=== PATIENT | male | born 1950 | race Caucasian/White ===

== ENCOUNTER 2018-08-02 09:47 | Day surgery (SDC) | payer MEDICARE, OTHER ==
[~2018-08-02] VITALS: Ht 182.9 cm; Wt 114.5 kg
[~2018-08-02 09:47] MED LIST: ADVI1CAP2 PO; LIDOCAINE 2% INJ 100 MG/5 ML SDV (FOR ANES.) As Ordered ONE; PROPOFOL 200 MG/20 ML VIAL As Ordered ONE; SIMV40TA2 PO; VALS160T PO
[2018-08-02] MEDS ORDERED: NS 1,000 ML IV ONE (10:00)
--- NOTE | 2018-08-02 11:08 | ROOR ---
Patient Name: Mc Nguyen Procedure Date: 08/02/2018 10:46 AM Date of : 1950 Age: 68 Room: [facility] Gender: Male Note Status: Finalized Procedure: Total Colonoscopy to Cecum + Cold Snare Polypectomy + Hemoclips Indications: Colon cancer screening in patient at increased risk: Colorectal cancer in father, Last colonoscopy: 2011 Providers: Saroj Ordonez MD Referring MD: PERI KIM MD Requesting Provider: Medicines: Monitored Anesthesia Care Complications: No immediate complications. Procedure: Pre-Anesthesia Assessment: - The heart rate, respiratory rate, oxygen saturations, blood pressure, adequacy of pulmonary ventilation, and response to care were monitored throughout the procedure. The Colonoscope was introduced through the anus and advanced to the cecum, identified by appendiceal orifice and ileocecal valve. The colonoscopy was performed without difficulty. The patient tolerated the procedure well. The quality of the bowel preparation was excellent. Findings: The perianal and digital rectal examinations were normal. Non-bleeding internal hemorrhoids were found during retroflexion. The hemorrhoids were small and Grade I (internal hemorrhoids that do not prolapse). Multiple small and large-mouthed diverticula were found in the recto-sigmoid colon, sigmoid colon and descending colon. Three sessile polyps were found in the ascending colon. The polyps were small in size. These polyps were removed with a cold snare. Resection and retrieval were complete. To prevent bleeding after the polypectomy, two hemostatic clips were successfully placed (MR conditional). There was no bleeding at the end of the procedure. The exam was otherwise without abnormality on direct and retroflexion views. Impression: - Non-bleeding internal hemorrhoids. - Diverticulosis in the recto-sigmoid colon, in the sigmoid colon and in the descending colon. - Three small polyps in the ascending colon, removed with a cold snare. Resected and retrieved. Clips (MR conditional) were placed. - The examination was otherwise normal on direct and retroflexion views. - The exam was otherwise normal to the cecum. Recommendation: - Patient has a contact number available for emergencies. The signs and symptoms of potential delayed complications were discussed with the patient. Return to normal activities tomorrow. Written discharge instructions were provided to the patient. - High fiber diet. - Discharge patient to home. - Continue present medications. - Await pathology results. - Telephone GI clinic for pathology results in 1 week. - Repeat colonoscopy in 5 years for surveillance based on pathology results. - Return to referring physician. - The findings and recommendations were discussed with the patient's family. Saroj Ordonez MD Saroj Ordonez MD 08/02/2018 11:07:41 AM This report has been signed electronically. Number of Addenda: 0 Note Initiated On: 08/02/2018 10:46 AM Estimated Blood Loss: Estimated blood loss: none.
[2018-08-02 11:36] VITALS: BP 176/99
== END 2018-08-02 11:38 | disposition home or self-care (01) ==
LOC: M OPP 09:47
PROVIDERS: ATTEND Internal Medicine Gastroenterology
DX: K64.0 First degree hemorrhoids (principal); K57.30 Diverticulosis of large intestine without perforation or abscess without bleeding; D12.2 Benign neoplasm of ascending colon; Z12.11 Encounter for screening for malignant neoplasm of colon; Z80.0 Family history of malignant neoplasm of digestive organs

== ENCOUNTER → 2021-03-11 | Outpatient (CLI) | payer MEDICARE, OTHER ==
[~2021-03-11] MED LIST changes: -LIDOCAINE 2% INJ 100 MG/5 ML SDV (FOR ANES.) As Ordered ONE; -PROPOFOL 200 MG/20 ML VIAL As Ordered ONE; -SIMV40TA2 PO; +SIMV40TA20 PO; -VALS160T PO; +VALS160T2 PO
--- NOTE | 2021-03-11 09:59 | REP ---
INDICATION: LOW BACK PAIN. COMPARISON: None available. TECHNIQUE: Five images lumbar spine FINDINGS: The lateral view demonstrates loss of normal lordosis. There is spondylosis with narrowing and both anterior and posterior osteophytes at L2-3 and also spondylosis at L5-S1 with disc space narrowing there is lesser disc space narrowing at L4-5 with anterior and smaller posterior osteophytes. The L3-4 disc level is preserved. The L1-2 disc level shows only minimal narrowing. There is facet arthropathy at L4-5 and L5-S1. I see no spondylolysis or spondylolisthesis. Heavy vascular calcifications in the aorta and iliac vessels noted. Compression deformities or destructive lesions. The pedicles, spinous and transverse processes are unremarkable. Sacral ala, SI joints, iliac wings, lower thoracic vertebral bodies and ribs grossly intact. IMPRESSION: Degenerative disc disease with spondylosis and disc space narrowing greatest at L2-3 and L5-S1. Loss of lordosis may reflect spasm or the effects of degenerative change. Facet arthritis at L4-5 and L5-S1. No spondylolysis, spondylolisthesis or compression deformity. <Electronically signed by Sid Youssef > 03/11/21 [id number]
== END ==
LOC: M WUC 08:46
PROVIDERS: ATTEND Physician Assistant
DX: M47.816 Spondylosis without myelopathy or radiculopathy, lumbar region (principal); M54.5 Low back pain

== ENCOUNTER → 2021-04-18 | Outpatient (CLI) | payer MEDICARE, OTHER ==
--- NOTE | 2021-04-19 09:52 | REPVR ---
PROCEDURE INFORMATION: Exam: MR Lumbar Spine Without Contrast Exam date and time: 04/18/2021 9:04 AM Age: 70 years old Clinical indication: Low back pain; Additional info: Spinal stenosis w/ claudication, failed treatment TECHNIQUE: Imaging protocol: Multiplanar magnetic resonance images of the lumbar spine without intravenous contrast. COMPARISON: CR SPINE LS COMPLETE 03/11/2021 9:13 AM FINDINGS: Vertebrae: There is straightening of the normal lumbar lordosis. There is 2 mm of grade 1 retrolisthesis of L2 with respect to L3. There is for mm of grade 1 retrolisthesis of L4 with respect to L5 and L5 with respect to S1. There is severe intervertebral disc space loss at L2/3, with endplate signal changes. There is osseous fusion of the L5 and S1 bodies. Spinal cord: The conus medullaris terminates at T12/L1. The patient has a congenitally narrowed spinal canal. L1-L2: There is diffuse disc bulging. There is mild facet and ligamentous hypertrophy. The spinal canal and neural foramina are patent. L2-L3: There is a diffuse disc osteophyte complex. There is mild facet and ligamentous hypertrophy. There is mild canal stenosis. There is mild left neural foraminal narrowing. L3-L4: There is diffuse disc bulging with a superimposed left paracentral/subarticular superior disc extrusion measuring up to 8 mm in AP dimension. This effaces the left lateral recess, with potential compromise of the left L4 nerve root. There is severe canal stenosis. There is moderate facet hypertrophy. There is mild left neural foraminal narrowing. L4-L5: There is disc bulging/uncovering related to listhesis. There is moderate facet hypertrophy. There is mild canal stenosis. There is mild bilateral neural foraminal narrowing. L5-S1: There is a diffuse disc osteophyte complex. There is mild facet hypertrophy. There is severe right and moderate to severe left neural foraminal narrowing. Soft tissues: Unremarkable. IMPRESSION: Degenerative disc disease and spondylosis. At L3/4, large left paracentral/superior disc protrusion/extrusion effaces the left lateral recess, with potential compromise of the left L4 nerve root. There is severe canal stenosis. At L5/S1, there is severe right and moderate to severe left neural foraminal narrowing. Electronically signed by: Fernanda Brennan On 04/19/2021 09:52:09 AM
== END ==
LOC: M PLAIMG 08:22
PROVIDERS: ATTEND Orthopaedic Surgery
DX: M48.062 Spinal stenosis, lumbar region with neurogenic claudication (principal)

== ENCOUNTER → 2021-05-21 | Outpatient (CLI) | payer MEDICARE, OTHER ==
--- NOTE | 2021-05-21 10:15 | REP ---
INDICATION: PREOP TESTING COMPARISON: None. TECHNIQUE: PA and lateral. FINDINGS: The mediastinum and cardiac silhouette are normal. The lung christine are clear and without acute consolidation, effusion, or pneumothorax. The skeletal structures are intact and normal. IMPRESSION: No acute cardiopulmonary process. <Electronically signed by Raul Magaña > 05/21/21 1012
[2021-05-21 12:05] LABS: BASO # 0.1 10^3/uL (0.0-0.2); BASO % 0.8 % (0.0-1.0); EOS # 0.1 10^3/uL (0.0-0.5); HEMATOCRIT 42.7 % (42.0-52.0); HEMOGLOBIN 14.4 g/dl (13.5-17.5); LYMPH # 1.8 10^3/uL (1.5-5.0); LYMPH % 27.6 % (24.0-44.0); MEAN CORPUSCULAR HGB CONC 33.7 g/dl (32.0-36.5); MONO # 0.8 10^3/uL (0.0-0.8); MONO % 11.6 % (2.0-8.0); NEUTROPHILS # 3.8 10^3/uL (1.5-8.5); NEUTROPHILS % 57.7 % (36.0-66.0); PLATELET COUNT, AUTOMATED 169 10^3/uL (150-450); RED BLOOD COUNT 4.64 10^6/uL (4.30-6.10); WHITE BLOOD COUNT 6.6 10^3/uL (4.0-10.0)
[2021-05-21 12:21] LABS: INR 0.91; PROTHROMBIN TIME 12.6 SECONDS (12.7-14.5)
[2021-05-21 12:22] LABS: PARTIAL THROMBOPLASTIN TIME 29.3 SECONDS (25.9-37.0)
[2021-05-21 13:29] LABS: ALBUMIN 3.8 GM/DL (3.2-5.2); ALT/SGPT 28 U/L (12-78); BILIRUBIN,TOTAL 0.6 MG/DL (0.2-1.0); BLOOD UREA NITROGEN 18 MG/DL (7-18); CALCIUM LEVEL 9.8 MG/DL (8.8-10.2); CARBON DIOXIDE LEVEL 29 MEQ/L (21-32); CHLORIDE LEVEL 103 MEQ/L (98-107); CREATININE FOR GFR 1.23 MG/DL (0.70-1.30); GLOMERULAR FILTRATION RATE > 60.0 (>49); GLUCOSE, FASTING 115 MG/DL (70-100); PHOSPHORUS LEVEL 2.6 MG/DL (2.5-4.9); POTASSIUM SERUM 4.2 MEQ/L (3.5-5.1); SODIUM LEVEL 136 MEQ/L (136-145); TOTAL PROTEIN 6.9 GM/DL (6.4-8.2)
[2021-05-21 13:51] LABS: HEMOGLOBIN A1c 5.7 %
== END ==
LOC: M WUC 09:21
PROVIDERS: ATTEND Orthopaedic Surgery
DX: Z01.818 Encounter for other preprocedural examination (principal); M51.06 Intervertebral disc disorders with myelopathy, lumbar region; Z79.899 Other long term (current) drug therapy

== ENCOUNTER → 2021-05-31 | Outpatient (CLI) | payer MEDICARE, OTHER ==
[~2021-05-31] MED LIST changes: +TRAM50TA2 PO; +tylenol pm PO
== END ==
LOC: M LABSMTC 09:07
PROVIDERS: ATTEND Anesthesiology
DX: Z01.812 Encounter for preprocedural laboratory examination (principal); Z20.822 Contact with and (suspected) exposure to COVID-19

== ENCOUNTER 2021-06-05 06:29 | Day surgery (SDC) | payer MEDICARE, OTHER ==
[~2021-06-05] VITALS: Ht 182.9 cm; Wt 105.2 kg
[~2021-06-05 06:29] MED LIST changes: +LR 1,000 ML IV ONE; +ceFAZolin SOD 2 GM in IV 1 EA IV ONE
--- OUTSIDE RECORDS SUMMARY | 2021-06-05 06:32 | CCD | Continuity of Care Document ---
Author Author Mc POLANCO M.D. Organization Unknown Address [address] [facility] [address] [place] [address] Phone [phone] Problems Active Problems Provider Date Essential hypertension Onset: 08/04/2001 Shoulder joint pain Onset: 08/04/2001 Hyperlipidemia Kevin Polanco M.D. Onset: 3 Social History Type Date Description Comments Sex Unknown ETOH Use Occasionally consumes beer ETOH Use current.liquor.occasionally Tobacco Use Start: Unknown End: Unknown Patient is a former smoker Quit 2004 Seat Belt/Car Seat always Allergies and adverse reactions Description No Known Drug Allergies Medications Active Medications SIG Qnty Indications Ordering Provide r Date Diovan HCT 160-12.5mg Tablets 1 by mouth every day 90tabs Kevin Polanco M.D. 10/13/19 18 Tramadol HCL 50mg Tablets 1 by mouth three times a day as needed pain [id number] 90tabs Aj Polanco M.D. 08/12/2017 Simvastatin 40mg Tablets 1 by mouth every day 90tabs Kevin Polanco M.D. 06/13/20 13 Immunizations CPT Code Status Date Vaccine Lot # [id number] Refused 06/18/2018 Influenza Virus Vaccine, Quadrivalent, Slit Virus, Im Use 3Y & Up Vital Signs Date Vital Result Comment 05/21/2021 10:18am BP Systolic 114 mmHg BP Diastolic 74 mmHg Body Temperature 98.5 F Heart Rate 70 /min Respiratory Rate 18 /min Height 72 inches 6'0" Weight 233.00 lb [place] Body Weight 178 lb BMI (Body Mass Index) 31.6 kg/m2 O2 % BldC Oximetry 94 % 04/08/2021 8:22am BP Systolic 122 mmHg BP Diastolic 78 mmHg Heart Rate 72 /min Respiratory Rate 14 /min Weight 227.00 lb Results Test Acquired Date Facility Test Result H/L Range Note Coronavirus 2019 Nasopharygeal 05/31/2021 [facility] ([facility]) [phone] Coronavirus 2019 Nasopharygeal ASSAY INFORMATIO <SEE N OTE> 1 Hemoglobin A1c 05/21/2021 N2N/CCD Imports Hemoglobin A1c 5.7 % 2 Estimated Average Glucose 117 MG/DL High 60-110 Renal Profile 05/21/2021 N2N/CCD Imports Phosphorus Level 2.6 MG/DL 2.5-4.9 Comprehensive Metabolic Profil 05/21/2021 N2N/CCD I mports Glucose, Fasting 115 MG/DL High 70-100 Blood Urea Nitrogen 18 MG/DL 7-18 Creatinine For GFR 1.23 MG/DL 0.70-1.30 Glomerular Filtration Rate > 60.0 >49 3 Sodium Level 136 Meq/L 136-145 Potassium Serum 4.2 Meq/L 3.5-5.1 Chloride Level 103 Meq/L 98-107 Carbon Dioxide Level 29 Meq/L 21-32 Anion Gap 4 Meq/L Low 8-16 Calcium Level 9.8 MG/DL 8.8-10.2 Ast/Sgot 19 U/L 7-37 Alt/SGPT 28 U/L 12-78 Alkaline Phosphatase 74 U/L 45-117 Bilirubin,Total 0.6 MG/DL 0.2-1.0 Total Protein 6.9 GM/DL 6.4-8.2 Albumin 3.8 GM/DL 3.2-5.2 Albumin/Globulin Ratio 1.2 Type And Screen 05/21/2021 N2N/CCD Imports Blood Type O Positive AB Screen (Indirect Alysha)Vis Negative Partial Thromboplastin Time 05/21/2021 N2N/CCD Impo rts Partial Thromboplastin Time 29.3 Seconds 25.9-37.0 Prothrombin Time/Inr 05/21/2021 N2N/CCD Imports Prothrombin Time 12.6 Seconds 12.7-14.5 Inr 0.91 4 CBC With Differential 05/21/2021 N2N/CCD Imports White Blood Count 6.6 10 4.0-10.0 Red Blood Count 4.64 10 4.30-6.10 Hemoglobin 14.4 g/dl 13.5-17.5 Hematocrit 42.7 % 42.0-52.0 Mean Corpuscular Volume 92.0 fl 80.0-96.0 Mean Corpuscular Hemoglobin 31.0 pg 27.0-33.0 Mean Corpuscular HGB Conc 33.7 g/dl 32.0-36.5 Red Cell Distribution Width 12.1 % 11.5-14.5 Platelet Count, Automated 169 10 150-450 Neutrophils % 57.7 % 36.0-66.0 Lymph % 27.6 % 24.0-44.0 [place] % 11.6 % High 2.0-8.0 Eos % 2.0 % 0.0-3.0 Baso % 0.8 % 0.0-1.0 Immature Granulocyte % 0.3 % 0-3.0 Nucleated Red Blood Cell % 0.0 % 0-0 Neutrophils # 3.8 10 1.5-8.5 Lymph # 1.8 10 1.5-5.0 [place] # 0.8 10 0.0-0.8 Eos # 0.1 10 0.0-0.5 Baso # 0.1 10 0.0-0.2 Metabolic Panel (14), Comprehensive 04/08/2021 [facility] [place] Glucose 115 mg/dL High 65-99 BUN 21 mg/dL 8-27 Creatinine 1.15 mg/dL 0.76-1.27 eGFR If NonAfricn Am 65 mL/min/1.73 >59 eGFR If Africn Am 75 mL/min/1.73 >59 5 BUN/Creatinine Ratio 18 10-24 Sodium 135 mmol/L 134-144 Potassium 4.0 mmol/L 3.5-5.2 Chloride 100 mmol/L 96-106 Carbon Dioxide, Total 21 mmol/L 20-29 Calcium 9.4 mg/dL 8.6-10.2 Protein, Total 6.8 g/dL 6.0-8.5 Albumin 4.5 g/dL 3.8-4.8 Globulin, Total 2.3 g/dL 1.5-4.5 A/G Ratio 2.0 1.2-2.2 Bilirubin, Total 0.6 mg/dL 0.0-1.2 Alkaline Phosphatase 76 IU/L 48-121 Ast (Sgot) 24 IU/L 0-40 Alt (SGPT) 23 IU/L 0-44 Lipid Panel 04/08/2021 [facility] [place] Cholesterol, Total 171 mg/dL 100-199 Triglycerides 115 mg/dL 0-149 HDL Cholesterol 53 mg/dL >39 VLDL Cholesterol Miguel 21 mg/dL 5-40 LDL Chol Calc ([facility]) 97 mg/dL 0-99 Comment: TNP Laboratory test finding 04/08/2021 [facility] Hemoglobin A1c 5.7 % 4.50-6.20 1 ASSAY INFORMATION: Real Time RT-PCR NOTE: The COVID-19 assay has been cleared by the U.S. Food and Drug Administration under the Emergency Use Authorization (EUA). [facility] and [employer] [facility] are designated as high complexity laboratories by the Clinical Laboratory Improvement Amendments of 1988(CLIA) and are qualified to perform this test. Not Detected 2 REFERENCE RANGES: <=5.6% NORMAL 5.7-6.4% SUGGESTS IMPAIRED GLUCOSE META BOLISM/PREDIABETIC >= 6.5% ABNORMAL 3 Units are mL/min/1.73 m2 Chronic Kidney Disease Staging per NKF: Stage I & II GFR >=60 Normal to Mildly Decreased Stage III GFR 30-59 Moderately Decreased Stage IV GFR 15-29 Severely Decreased Stage V GFR <15 Very Little GFR Left ESRD GFR <15 on BUFFING MACHINE TENDER 4 THERAPUTIC HUMAN INR VALUES INDICATIONS NORMAL RANGES PROPHYLAXIS/TREATMENT OF: VENOUS THROMBOSIS 2.0-3.0 PULMONARY EMBOLISM 2.0-3.0 PREVENTION OF SYSTEMIC EMBOLISM FROM: TISSUE HEART VALVES 2.0-3.0 ACUTE MYOCARDIAL INFARCTION 2.0-3.0 VALVULAR HEART DISEASE 2.0-3.0 ATRIAL FIBRILLATION 2.0-3.0 MECHANICAL VALVES(HIGH RISK) 2.5-3.5 RECURRENT MYOCARDIAL INFARCTION 2.5-3.5 5 [facility] currently reports eGFR in compliance with the current recommendations of the National Kidney Foundation. [facility] will update reporting as new guidelines are published from the NKF-ASN Task force. Procedures Date Code Description Status 05/21/2021 02142 Office/Outpatient Established Mo d MDM 30-39 Min Completed 04/08/2021 23117 Office/Outpatient Established Mo d MDM 30-39 Min Completed Medical Devices Description No Information Available Encounters Type Date Location Provider Dx Diagnosis Office Visit 05/21/2021 10:20a [facility] Kevin Polanco M. D. Z01.810 Encounter for preprocedural cardiovascular examination Office Visit 04/08/2021 8:30a [facility] Kevin Polanco M. D. I10 Essential (primary) hypertension R73.01 Impaired fasting glucose E78.5 Hyperlipidemia, unspecified M54.32 Sciatica, left side Assessments Date Code Description Provider 05/21/2021 Z01.810 Encounter for preprocedural card iovascular examination Kevin Polanco M.D. 04/08/2021 I10 Essential (primary) hypertension Kevin Polanco M.D. 04/08/2021 R73.01 Impaired fasting glucose Kevin Garcia M.D. 04/08/2021 E78.5 Hyperlipidemia, unspecified [facility] helKevin ghotra M.D. 04/08/2021 M54.32 Sciatica, left side Giovanny Polanco M.D. Plan of Treatment Future Appointment(s):* 10/09/2021 8:30 am - Kevin Polanco M.D. at [facility] Functional Status Functional Condition Comment Date Status ADL's.independent.all ADL's Acti ve Mental Status Description No Information Available Referrals Refer to Reason for Referral Status Appt Date [facility] Orthopedics [facility] orthopedics left sciatica, eval and rx Sent 04/11/[address]21 [address] [facility] [address] [facility] [address] [phone] [facility] Nurse Practitioners pearly lesion on lower lip- eval [place] rx Sent [address] [facility] [address] [place] [address] [phone]
--- OUTSIDE RECORDS SUMMARY | 2021-06-05 06:32 | CCD | Continuity of Care Document ---
Author Organization Unknown Address Unknown Phone Unavailable Problems Active Problems Provider Date Essential hypertension [...] three times a day as needed pain [id number] 90tabs Aj Polanco M.D. 08/12/2017 Simvastatin 40mg Tablets 1 by mouth every day 90tabs Kevin Polanco M.D. 06/13/20 13 Immunizations CPT Code Status Date Vaccine Lot # [id number] Refused 06/18/2018 Influenza Virus Vaccine, Quadrivalent, Slit Virus, Im Use 3Y & Up Vital Signs Date Vital Result Comment 05/21/2021 10:18am BP Systolic 114 mmHg BP Diastolic 74 mmHg Body Temperature 98.5 F Heart Rate 70 /min Respiratory Rate 18 /min Height 72 inches 6'0" Weight 233.00 lb [place] Body Weight 178 lb BMI (Body Mass Index) 31.6 kg/m2 O2 % BldC Oximetry 94 % 04/08/2021 8:22am BP Systolic 122 mmHg BP Diastolic 78 mmHg Heart Rate 72 /min Respiratory Rate 14 /min Weight 227.00 lb Results Test Acquired Date Facility Test Result H/L Range Note Hemoglobin A1c 05/21/2021 N2N/CCD Imports Hemoglobin A1c 5.7 % 1 Estimated Average Glucose 117 MG/DL High 60-110 Renal Profile 05/21/2021 N2N/CCD Imports Phosphorus Level 2.6 MG/DL 2.5-4.9 Comprehensive Metabolic Profil 05/21/2021 N2N/CCD I mports Glucose, Fasting 115 MG/DL High 70-100 Blood Urea Nitrogen 18 MG/DL 7-18 Creatinine For GFR 1.23 MG/DL 0.70-1.30 Glomerular Filtration Rate > 60.0 >49 2 Sodium Level 136 Meq/L 136-145 Potassium Serum [...] Prothrombin Time 12.6 Seconds 12.7-14.5 Inr 0.91 3 CBC With Differential 05/21/2021 N2N/CCD Imports White [...] % 36.0-66.0 Lymph % 27.6 % 24.0-44.0 [place] % 11.6 % High 2.0-8.0 Eos % 2.0 % 0.0-3.0 Baso % 0.8 % 0.0-1.0 Immature Granulocyte % 0.3 % 0-3.0 Nucleated Red Blood Cell % 0.0 % 0-0 Neutrophils # 3.8 10 1.5-8.5 Lymph # 1.8 10 1.5-5.0 [place] # 0.8 10 0.0-0.8 Eos # 0.1 10 0.0-0.5 Baso # 0.1 10 0.0-0.2 Metabolic Panel (14), Comprehensive 04/08/2021 [facility] [place] Glucose 115 mg/dL High 65-99 BUN 21 mg/dL 8-27 Creatinine 1.15 mg/dL 0.76-1.27 eGFR If NonAfricn Am 65 mL/min/1.73 >59 eGFR If Africn Am 75 mL/min/1.73 >59 4 BUN/Creatinine Ratio 18 10-24 Sodium 135 mmol/L [...] Miguel 21 mg/dL 5-40 LDL Chol Calc ([facility]) 97 mg/dL 0-99 Comment: TNP Laboratory test finding 04/08/2021 [facility] Hemoglobin A1c 5.7 % 4.50-6.20 1 REFERENCE RANGES: <=5.6% NORMAL 5.7-6.4% SUGGESTS IMPAIRED GLUCOSE META BOLISM/PREDIABETIC >= 6.5% ABNORMAL 2 Units are mL/min/1.73 m2 Chronic Kidney Disease Staging per NKF: Stage I & II GFR >=60 Normal to Mildly Decreased Stage III GFR 30-59 Moderately Decreased Stage IV GFR 15-29 Severely Decreased Stage V GFR <15 Very Little GFR Left ESRD GFR <15 on MARINE F[employer]EL DOCK ATTENDANT 3 THERAPUTIC HUMAN INR VALUES INDICATIONS NORMAL RANGES PROPHYLAXIS/TREATMENT OF: VENOUS THROMBOSIS 2.0-3.0 PULMONARY EMBOLISM 2.0-3.0 PREVENTION OF SYSTEMIC EMBOLISM FROM: TISSUE HEART VALVES 2.0-3.0 ACUTE MYOCARDIAL INFARCTION 2.0-3.0 VALVULAR HEART DISEASE 2.0-3.0 ATRIAL FIBRILLATION 2.0-3.0 MECHANICAL VALVES(HIGH RISK) 2.5-3.5 RECURRENT MYOCARDIAL INFARCTION 2.5-3.5 4 [facility] currently reports eGFR in compliance with the current recommendations of the National Kidney Foundation. [facility] will update reporting as new guidelines are published from the NKF-ASN Task force. Procedures Date Code Description Status 05/21/2021 97337 Office/Outpatient Established Mo d MDM 30-39 Min Completed 04/08/2021 47786 Office/Outpatient Established Mo d MDM 30-39 Min Completed Medical Devices Description No Information Available Encounters Type Date Location Provider Dx Diagnosis Office Visit 05/21/2021 10:20a [facility] Kevin Polanco M. D. Z01.810 Encounter for preprocedural cardiovascular examination Office Visit 04/08/2021 8:30a [facility] Kevin Polanco M. D. I10 Essential (primary) hypertension R73.01 Impaired fasting glucose E78.5 Hyperlipidemia, unspecified M54.32 Sciatica, left side Assessments Date Code Description Provider 05/21/2021 Z01.810 Encounter for preprocedural card iovascular examination Kevin Polanco M.D. 04/08/2021 I10 Essential (primary) hypertension Kevin Polanco M.D. 04/08/2021 R73.01 Impaired fasting glucose Kevin Garcia M.D. 04/08/2021 E78.5 Hyperlipidemia, unspecified [facility] Kevin siddiqui M.D. 04/08/2021 M54.32 Sciatica, left side Giovanny Polanco M.D. Plan of Treatment Future Appointment(s):* 10/09/2021 8:30 am - Kevin Polanco M.D. at [facility] Functional Status Functional Condition Comment Date Status ADL's.independent.all ADL's Acti ve Mental Status Description No Information Available Referrals Refer to Dr Reason for Referral Status Appt Date [facility] Orthopedics [facility] orthopedics left sciatica, eval and rx Sent 04/11/2021 [address] [place] [address] [phone] [facility] Nurse Practitioners pearly lesion on lower lip- [place] [address] [facility] [address] [place] [address] [phone]
--- OUTSIDE RECORDS SUMMARY | 2021-06-05 06:32 | CCD | Continuity of Care Document ---
[...] three times a day as needed pain [id number] 90tabs Aj Polanco M.D. 08/12/2017 Simvastatin 40mg Tablets 1 by mouth every day 90tabs Kevin Polanco M.D. 06/13/20 13 Immunizations CPT Code Status Date Vaccine Lot # [id number] Refused 06/18/2018 Influenza Virus Vaccine, Quadrivalent, Slit Virus, Im Use 3Y & Up Vital Signs Date Vital Result Comment 05/21/2021 10:18am BP Systolic 114 mmHg BP Diastolic 74 mmHg Body Temperature 98.5 F Heart Rate 70 /min Respiratory Rate 18 /min Height 72 inches 6'0" Weight 233.00 lb [place] Body Weight 178 lb BMI (Body Mass [...] % 36.0-66.0 Lymph % 27.6 % 24.0-44.0 [place] % 11.6 % High 2.0-8.0 Eos % 2.0 % 0.0-3.0 Baso % 0.8 % 0.0-1.0 Immature Granulocyte % 0.3 % 0-3.0 Nucleated Red Blood Cell % 0.0 % 0-0 Neutrophils # 3.8 10 1.5-8.5 Lymph # 1.8 10 1.5-5.0 [place] # 0.8 10 0.0-0.8 Eos # 0.1 [...] 0-99 Comment: TNP Laboratory test finding 04/08/2021 [facility] Hemoglobin A1c 5.7 % [...] Little GFR Left ESRD GFR <15 on CIGAR[employer] P[employer]AGE EXAMINER 3 THERAPUTIC HUMAN INR VALUES INDICATIONS NORMAL [...] force. Procedures Date Code Description Status 05/21/2021 63261 Office/Outpatient Established Mo d MDM 30-39 Min Completed 04/08/2021 99974 Office/Outpatient Established Mo d MDM 30-39 Min Completed Medical Devices Description No Information Available Encounters Type Date Location Provider Dx Diagnosis Office Visit 05/21/2021 10:20a [place] [facility] Kevin Poalnco M. D. Z01.810 Encounter for preprocedural cardiovascular examination Office Visit 04/08/2021 8:30a [place] [facility] Kevin Polanco M. D. I10 Essential (primary) hypertension R73.01 Impaired fasting glucose E78.5 Hyperlipidemia, unspecified M54.32 Sciatica, left side Assessments Date Code Description Provider 05/21/2021 Z01.810 Encounter for preprocedural card iovascular examination Kevin Polanco M.D. 04/08/2021 I10 Essential (primary) hypertension Kevin Polanco M.D. 04/08/2021 R73.01 Impaired fasting glucose Kevin Garcia M.D. 04/08/2021 E78.5 Hyperlipidemia, unspecified [facility] Kevin siddiqui M.D. 04/08/2021 M54.32 Sciatica, left side Giovanny Polanco M.D. Plan of Treatment Future Appointment(s):* 10/09/2021 8:30 am - Kevin Polanco M.D. at [facility] Functional Status Functional Condition Comment Date Status ADL's.independent.all ADL's Acti ve Mental Status Description No Information Available Referrals Refer to Dr Reason for Referral Status Appt Date [facility] Orthopedics [facility] orthopedics left sciatica, eval and rx Sent 04/11/2021 [address] [place] [address] [phone] [facility] Nurse Practitioners pearly lesion on lower lip- eval an d rx Sent [address] [facility] [address] [place] [address] [phone]
--- OUTSIDE RECORDS SUMMARY | 2021-06-05 06:33 | CCD | Continuity of Care Document ---
[...] three times a day as needed pain [id number] 90tabs Aj Polanco M.D. 08/12/2017 Simvastatin 40mg Tablets 1 by mouth every day 90tabs Kevin Polanco M.D. 06/13/20 13 Immunizations CPT Code Status Date Vaccine Lot # [id number] Refused 06/18/2018 Influenza Virus Vaccine, Quadrivalent, Slit Virus, Im Use 3Y & Up Vital Signs Date Vital Result Comment 05/21/2021 10:18am BP Systolic 114 mmHg BP Diastolic 74 mmHg Body Temperature 98.5 F Heart Rate 70 /min Respiratory Rate 18 /min Height 72 inches 6'0" Weight 233.00 lb [place] Body Weight 178 lb BMI (Body Mass [...] % 36.0-66.0 Lymph % 27.6 % 24.0-44.0 [place] % 11.6 % High 2.0-8.0 Eos % 2.0 % 0.0-3.0 Baso % 0.8 % 0.0-1.0 Immature Granulocyte % 0.3 % 0-3.0 Nucleated Red Blood Cell % 0.0 % 0-0 Neutrophils # 3.8 10 1.5-8.5 Lymph # 1.8 10 1.5-5.0 [place] # 0.8 10 0.0-0.8 Eos # 0.1 [...] 0-99 Comment: TNP Laboratory test finding 04/08/2021 [facility] Hemoglobin A1c 5.7 % 4.50-6.20 [...] Little GFR Left ESRD GFR <15 on COSTUME TECHNICIAN 3 THERAPUTIC HUMAN INR VALUES INDICATIONS NORMAL [...] force. Procedures Date Code Description Status 05/21/2021 87674 Office/Outpatient Established Mo d MDM 30-39 Min Completed 04/08/2021 28159 Office/Outpatient Established Mo d MDM 30-39 Min Completed Medical Devices Description No Information Available Encounters Type Date Location Provider Dx Diagnosis Office Visit 05/21/2021 10:20a [place] [facility] Kevin Polanco M. D. Z01.810 Encounter for preprocedural cardiovascular examination Office Visit 04/08/2021 8:30a [place] [facility] Kevin Polanco M. D. I10 Essential (primary) hypertension R73.01 Impaired fasting glucose E78.5 Hyperlipidemia, unspecified M54.32 Sciatica, left side Assessments Date Code Description Provider 05/21/2021 Z01.810 Encounter for preprocedural card iovascular examination Kevin Polanco M.D. 04/08/2021 I10 Essential (primary) hypertension Kevin Polanco M.D. 04/08/2021 R73.01 Impaired fasting glucose Kevin Garcia M.D. 04/08/2021 E78.5 Hyperlipidemia, unspecified [facility] Kevin siddiqui M.D. 04/08/2021 M54.32 Sciatica, left side Giovanny Polanco M.D. Plan of Treatment Future Appointment(s):* 10/09/2021 8:30 am - Kevin Polanco M.D. at [facility] Functional Status Functional Condition Comment Date Status ADL's.independent.all ADL's Acti ve Mental Status Description No Information Available Referrals Refer to Dr Reason for Referral Status Appt Date [facility] Orthopedics [facility] orthopedics left sciatica, eval and rx Sent 04/11/2021 [address] [place] [address] [phone] [facility] Nurse Practitioners pearly lesion on lower lip- eval an d rx [place] [address] [facility] [address] [place] [address] [phone]
--- OUTSIDE RECORDS SUMMARY | 2021-06-05 06:33 | CCD | Continuity of Care Document ---
Author Author Mc RIZO DO Organization Unknown Address [address] [place] [address], [place] [address] Phone [phone] Care Team Providers Care Forming Machine Operator Name Role Phone Kevin Polanco M.D. AUTM [phone] Problems Active Problems Provider Date Essential hypertension Manny Rizo DO Onset: 04/11/20 21 Social History Type Date Description Comments Sex Unknown ETOH Use Occasionally consumes alcohol Tobacco Use Start: Unknown Cigar occasional Recreational Drug Use Denies Drug Use Smoking Status Reviewed: 05/01/21 Cigar occasional Allergies, Adverse Reactions, Alerts Description No Known Drug Allergies Medications Active Medications SIG Qnty Indications Ordering Provide r Date Simvastatin 20mg Tablets 1 tab by mouth daily Unknown Losartan Potassium 25mg Tablets 1 tab by mouth daily Unknown Immunizations Description No Information Available Vital Signs Date Vital Result Comment 05/08/2021 9:34am Body Temperature 97.1 F 05/01/2021 9:02am Body Temperature 96.8 F Results Description No Information Available Procedures Date Code Description Status 05/01/2021 90086 Office/Outpatient Established Mo d MDM 30-39 Min Completed 04/11/2021 06878 Office/Outpatient New Low MDM 30 -44 Minutes Completed Medical Devices Description No Information Available Encounters Type Date Location Provider Dx Diagnosis Office Visit 05/01/2021 9:20a [facility] Lakia Rizo DO M51.16 Intervertebral disc disorders w radiculo teo, lumbar region Office Visit 04/11/2021 9:00a [facility] Lakia Rizo DO M48.062 Spinal stenosis, lumbar region with neur ogenic claudication M43.06 Spondylolysis, lumbar region Assessments Date Code Description Provider 05/01/2021 M51.16 Intervertebral disc disorders with radiculopathy, lumbar region Manny Rizo DO 04/11/2021 M48.062 Spinal stenosis, lumbar region w ith neurogenic claudication Manny Rizo DO 04/11/2021 M43.06 Spondylolysis, lumbar region Manny Rizo DO Plan of Treatment No Information Available Functional Status Description No Information Available Mental Status Description No Information Available Referrals Description No Information Available
--- OUTSIDE RECORDS SUMMARY | 2021-06-05 06:33 | CCD | Continuity of Care Document ---
Author Author Mc POLANCO M.D. Organization Unknown Address [address] [address] Phone [phone] Problems Active Problems Provider Date Essential hypertension Onset: 08/04/2001 Shoulder joint pain Onset: 08/04/2001 Hyperlipidemia Kevin Polanco M.D. Onset: 3 Social History Type Date Description Comments Sex Unknown ETOH Use Occasionally consumes beer ETOH Use current.liquor.occasionally Tobacco Use Start: Unknown End: Unknown Patient is a former smoker Quit 2004 Seat Belt/Car Seat always Allergies, Adverse Reactions, Alerts Description No Known Drug Allergies Medications Active Medications SIG Qnty Indications Ordering Provide r Date Diovan HCT 160-12.5mg Tablets 1 by mouth every day 90tabs Kevin Polanco M.D. 10/13/19 18 Tramadol HCL 50mg Tablets 1 by mouth three times a day as needed pain [id number] 90tabs Aj Polanco M.D. 08/12/2017 Simvastatin 40mg Tablets 1 by mouth every day 90tabs Kevin Polanco M.D. 06/13/20 13 Immunizations CPT Code Status Date Vaccine Lot # [id number] Refused 06/18/2018 Influenza Virus Vaccine, Quadrivalent, Slit Virus, Im Use 3Y & Up Vital Signs Date Vital Result Comment 04/08/2021 8:22am BP Systolic 122 mmHg BP Diastolic 78 mmHg Heart Rate 72 /min Respiratory Rate 14 /min Weight 227.00 lb 10/01/2020 8:25am BP Systolic 124 mmHg BP Diastolic 80 mmHg Heart Rate 72 /min Respiratory Rate 14 /min Weight 239.00 lb Results Test Acquired Date Facility Test Result H/L Range Note Metabolic Panel (14), Comprehensive 04/08/2021 [facility] Glucose 115 mg/dL High 65-99 BUN 21 mg/dL 8-27 Creatinine 1.15 mg/dL 0.76-1.27 eGFR If NonAfricn Am 65 mL/min/1.73 >59 eGFR If Africn Am 75 mL/min/1.73 >59 1 BUN/Creatinine Ratio 18 10-24 Sodium 135 mmol/L [...] 0-99 Comment: TNP Laboratory test finding 04/08/2021 [facility] Hemoglobin A1c 5.7 % 4.50-6.20 1 [facility] currently reports eGFR in compliance with the current recommendations of the National Kidney Foundation. [facility] will update reporting as new guidelines are published from the NKF-ASN Task force. Procedures Date Code Description Status 04/08/2021 87812 Office/Outpatient Established Mo d MDM 30-39 Min Completed Medical Devices Description No Information Available Encounters Type Date Location Provider Dx Diagnosis Office Visit 04/08/2021 8:30a [place] [facility] Kevin Polanco M. D. I10 Essential (primary) hypertension R73.01 Impaired fasting glucose E78.5 Hyperlipidemia, unspecified M54.32 Sciatica, left side Assessments Date Code Description Provider 04/08/2021 I10 Essential (primary) hypertension Kevin Polanco M.D. 04/08/2021 R73.01 Impaired fasting glucose Kevin Garcia M.D. 04/08/2021 E78.5 Hyperlipidemia, unspecified [facility] Kevin siddiqui M.D. 04/08/2021 M54.32 Sciatica, left side Giovanny Polanco M.D. Plan of Treatment No Information Available Functional Status Functional Condition Comment Date Status ADL's.independent.all ADL's Acti ve Mental Status Description No Information Available Referrals Refer to Dr Reason for Referral Status Appt Date [facility] Orthopedics [facility] orthopedics left sciatica, eval and rx Sent 04/11/2021 [address] [place] [address] [phone] [facility] Nurse Practitioners pearly lesion on lower lip- eval [place] [address] [facility] [address] [place] [address] [phone]
--- OUTSIDE RECORDS SUMMARY | 2021-06-05 06:33 | CCD | Continuity of Care Document ---
Author Author Mc CRAWLEY DO Organization Unknown Address [address] [place] [address], [place] [address] Phone [phone] Care Team Providers Care Cdl Instructor Name Role Phone Kevin Polanco M.D. AUTM [phone] Problems Active Problems Provider Date Essential hypertension Manny Crawley DO Onset: 04/11/20 21 Social History Type Date Description Comments Sex Unknown ETOH Use Occasionally consumes alcohol Tobacco Use Start: Unknown Cigar occasional Recreational Drug Use Denies Drug Use Smoking Status Reviewed: 04/11/21 Cigar occasional Allergies, Adverse Reactions, Alerts Description No Known Drug Allergies Medications Active Medications SIG Qnty Indications Ordering Provide r Date Simvastatin 20mg Tablets 1 tab by mouth daily Unknown Losartan Potassium 25mg Tablets 1 tab by mouth daily Unknown Immunizations Description No Information Available Vital Signs Date Vital Result Comment 04/11/2021 8:52am Body Temperature 96.3 F Results Description No Information Available Procedures Date Code Description Status 04/11/2021 37352 Office/Outpatient New Low MDM 30 -44 Minutes Completed Medical Devices Description No Information Available Encounters Type Date Location Provider Dx Diagnosis Office Visit 04/11/2021 9:00a [facility] Orthoped[facility] Lakia Crawley DO M48.062 Spinal stenosis, lumbar region with neur ogenic claudication M43.06 Spondylolysis, lumbar region Assessments Date Code Description Provider 04/11/2021 M48.062 Spinal stenosis, lumbar region w ith neurogenic claudication Manny Crawley DO 04/11/2021 M43.06 Spondylolysis, lumbar region Manny Crawley DO Plan of Treatment 04/11/2021 - Manny Crawley DO* M48.062 Spinal stenosis, lumbar region with neurogenic claudication* New Xrays:* MRI Lumbar Spine W/O Contrast, Ordered: 04/11/21 * Comments:* MRI lumbar spine without contrastFollow-up to review MRI and discuss further conservative versus surgical options if indicatedContinue conservative management * M43.06 Spondylolysis, lumbar region Functional Status Description No Information Available Mental Status Description No Information Available Referrals Description No Information Available
--- OUTSIDE RECORDS SUMMARY | 2021-06-05 06:33 | CCD | Continuity of Care Document ---
Author Author Mc POLANCO M.D. Organization Unknown Address 3 [facility] [address] [place] [address] Phone [phone] Problems Active Problems Provider Date Essential hypertension [...] three times a day as needed pain [id number] 90tabs Aj Polanco M.D. 08/12/2017 Simvastatin 40mg Tablets 1 by mouth every day 90tabs Kevin Polanco M.D. 06/13/20 13 Immunizations CPT Code Status Date Vaccine Lot # [id number] Refused 06/18/2018 Influenza Virus Vaccine, Quadrivalent, Slit Virus, Im Use 3Y & Up Vital Signs Date Vital Result Comment 05/21/2021 10:18am BP Systolic 114 mmHg BP Diastolic 74 mmHg Body Temperature 98.5 F Heart Rate 70 /min Respiratory Rate 18 /min Height 72 inches 6'0" Weight 233.00 lb [place] Body Weight 178 lb BMI (Body Mass [...] force. Procedures Date Code Description Status 05/21/2021 30981 Office/Outpatient Established Mo d MDM 30-39 Min Completed 04/08/2021 16032 Office/Outpatient Established Mo d MDM 30-39 Min Completed Medical Devices Description No Information Available Encounters Type Date Location Provider Dx Diagnosis Office Visit 05/21/2021 10:20a [facility] Kevin Polanco M. D. Z01.810 Encounter for preprocedural cardiovascular examination Office Visit 04/08/2021 8:30a [facility] Kevin Polanco M. D. I10 Essential (primary) hypertension R73.01 Impaired fasting glucose E78.5 Hyperlipidemia, unspecified M54.32 Sciatica, left side Assessments Date Code Description Provider 05/21/2021 Z01.810 Encounter for preprocedural card iovascular examination Kevin Polanco M.D. 04/08/2021 I10 Essential (primary) hypertension Kevin Polanco M.D. 04/08/2021 R73.01 Impaired fasting glucose Kevin Garcia M.D. 04/08/2021 E78.5 Hyperlipidemia, unspecified [facility] helKevin ghotra M.D. 04/08/2021 M54.32 Sciatica, left side Giovanny Polanco M.D. Plan of Treatment Future Appointment(s):* 10/09/2021 8:30 am - Kevin Polanco M.D. at [facility] Functional Status Functional Condition Comment Date Status ADL's.independent.all ADL's Acti ve Mental Status Description No Information Available Referrals Refer to Reason for Referral Status Appt Date [facility] Orthopedics [facility] orthopedics left sciatica, eval and rx Sent 04/11/2021 [address] [facility] [address] [phone] [facility] Nurse Practitioners pearly lesion on lower lip- [place] [address] [facility] [address] [place] [address] [phone]
--- OUTSIDE RECORDS SUMMARY | 2021-06-05 06:33 | CCD | Continuity of Care Document ---
Author Author Mc SANTOS PA Organization Unknown Address [address] [place] [address] [place] [address] Phone [phone] Care Team Providers Care Workday Consultant Name Role Phone Kevin Polanco MD AUTM [phone] Problems Description No Information Available Social History Type Date Description Comments Sex Unknown ETOH Use Occasionally consumes alcohol Tobacco Use Start: Unknown End: Unknown Patient is a former smoker quit 6-7 yrs ago Smoking Status Reviewed: 03/11/21 Patient is a former smoker qu it 6-7 yrs ago Allergies, Adverse Reactions, Alerts Description No Known Drug Allergies Medications Active Medications SIG Qnty Indications Ordering Provide r Date Cyclobenzaprine HCL 10mg Tablets 1 tab by mouth every 8 hours as needed 20tabs M54.5 Donald Carpenter JR., M.D. 03/11/2021 Simvastatin 20mg Tablets qd in the evening 30tabs Unknown Diovan po qd Unknown History Medications Cyclobenzaprine HCL 10mg Tablets 1 tab by mouth three times a day as needed 20tabs M54.5 Donald ambrosio JR., M.D. 03/03/2021 - 03/10/2021 Immunizations Description No Information Available Vital Signs Date Vital Result Comment 03/11/2021 8:12am BP Systolic 118 mmHg BP Diastolic 80 mmHg Heart Rate 85 /min Respiratory Rate 17 /min O2 % BldC Oximetry 99 % Body Temperature 98.0 F Weight 218.00 lb Height 71 inches 5'11" BMI (Body Mass Index) 30.4 kg/m2 Pain Level 7 03/03/2021 8:09am BP Systolic 119 mmHg BP Diastolic 76 mmHg Heart Rate 71 /min Respiratory Rate 16 /min O2 % BldC Oximetry 98 % Body Temperature 98.0 F Weight 218.00 lb Height 71 inches 5'11" BMI (Body Mass Index) 30.4 kg/m2 Pain Level 8 Results Description No Information Available Procedures Date Code Description Status 03/11/2021 86881 Office/Outpatient Established Lo w MDM 20-29 Min Completed 03/03/2021 85880 Office/Outpatient Established Lo w MDM 20-29 Min Completed Medical Devices Description No Information Available Encounters Type Date Location Provider Dx Diagnosis Office Visit 03/11/2021 8:10a Main Office KAITLIN Ohara M54.5 Low back pain Office Visit 03/03/2021 8:00a Main Office Vito Lagos, P.AVeena M5 4.5 Low back pain Assessments Date Code Description Provider 03/11/2021 M54.5 Low back pain KAITLIN Ohara 03/03/2021 M54.5 Low back pain Vito ness P.A. Plan of Treatment 03/11/2021 - KAITLIN Ohara* M54.5 Low back pain* New Medication:* Cyclobenzaprine HCL 10 mg - 1 tab by mouth every 8 hours as needed * Comments:* Plain surjit Functional Status Description No Information Available Mental Status Description No Information Available Referrals Description No Information Available
--- OUTSIDE RECORDS SUMMARY | 2021-06-05 06:33 | CCD | Continuity of Care Document ---
Author Author Mc RIZO DO Organization Unknown Address [address] [place] [address], [place] [address] Phone [phone] Care Team Providers Care Carpet Installation Specialist Name Role Phone Kevin Polanco M.D. AUTM [phone] Problems Active Problems Provider Date Essential hypertension [...] Available Vital Signs Date Vital Result Comment 05/01/2021 9:02am Body Temperature 96.8 F 04/11/2021 8:52am Body Temperature 96.3 F Results Description No Information Available Procedures Date Code Description Status 04/11/2021 35773 Office/Outpatient New Low [facility] 30 -44 Minutes Completed Medical Devices Description No Information Available Encounters Type Date Location Provider Dx Diagnosis Office Visit 04/11/2021 9:00a [facility] Lakia Rizo DO M48.062 Spinal stenosis, [...]
--- OUTSIDE RECORDS SUMMARY | 2021-06-05 06:33 | CCD | Continuity of Care Document ---
Author Author cM RIZO DO Organization Unknown Address [address] [place] [address], [place] [address] Phone [phone] Care Team Providers Care Canvas Products Sales Representative Name Role Phone Kevin Polanco M.D. AUTM [phone] Problems Active Problems Provider Date Essential hypertension [...] Available Procedures Date Code Description Status 05/01/2021 96253 Office/Outpatient Established Mo d MDM 30-39 Min Completed 04/11/2021 74833 Office/Outpatient New Low MDM 30 -44 Minutes Completed Medical Devices Description No Information Available Encounters Type Date Location Provider Dx Diagnosis Office Visit 04/11/2021 9:00a [facility] Lakia Rizo DO M48.062 Spinal stenosis, [...]
--- OUTSIDE RECORDS SUMMARY | 2021-06-05 06:33 | CCD | Continuity of Care Document ---
[...] three times a day as needed pain [id number] 90tabs Aj Polanco M.D. 08/12/2017 Simvastatin 40mg Tablets 1 by mouth every day 90tabs Kevin Polanco M.D. 06/13/20 13 Immunizations CPT Code Status Date Vaccine Lot # [id number] Refused 06/18/2018 Influenza Virus Vaccine, Quadrivalent, Slit Virus, Im Use 3Y & Up Vital Signs Date Vital Result Comment 05/21/2021 10:18am BP Systolic 114 mmHg BP Diastolic 74 mmHg Body Temperature 98.5 F Heart Rate 70 /min Respiratory Rate 18 /min Height 72 inches 6'0" Weight 233.00 lb [place] Body Weight 178 lb BMI (Body Mass [...] % 36.0-66.0 Lymph % 27.6 % 24.0-44.0 [place] % 11.6 % High 2.0-8.0 Eos % 2.0 % 0.0-3.0 Baso % 0.8 % 0.0-1.0 Immature Granulocyte % 0.3 % 0-3.0 Nucleated Red Blood Cell % 0.0 % 0-0 Neutrophils # 3.8 10 1.5-8.5 Lymph # 1.8 10 1.5-5.0 [place] # 0.8 10 0.0-0.8 Eos # 0.1 [...] 0-99 Comment: TNP Laboratory test finding 04/08/2021 [facility] Hemoglobin A1c 5.7 % [...] Little GFR Left ESRD GFR <15 on HEARING IMPAIRED ITINERANT TEACHER 3 THERAPUTIC HUMAN INR VALUES INDICATIONS NORMAL [...] force. Procedures Date Code Description Status 05/21/2021 09186 Office/Outpatient Established Mo d MDM 30-39 Min Completed 04/08/2021 13076 Office/Outpatient Established Mo d MDM 30-39 Min Completed Medical Devices Description No Information Available Encounters Type Date Location Provider Dx Diagnosis Office Visit 05/21/2021 10:20a [place] [facility] Kevin Polanco M. D. Z01.810 Encounter for preprocedural cardiovascular examination Office Visit 04/08/2021 8:30a [place] [facility] Kevin Polanco M. D. I10 Essential (primary) hypertension R73.01 Impaired fasting glucose E78.5 Hyperlipidemia, unspecified M54.32 Sciatica, left side Assessments Date Code Description Provider 05/21/2021 Z01.810 Encounter for preprocedural card iovascular examination Kevin Polanco M.D. 04/08/2021 I10 Essential (primary) hypertension Kevin Polanco M.D. 04/08/2021 R73.01 Impaired fasting glucose Kevin Garcia M.D. 04/08/2021 E78.5 Hyperlipidemia, unspecified [facility] Kevin siddiqui M.D. 04/08/2021 M54.32 Sciatica, left side Giovanny Polanco M.D. Plan of Treatment Future Appointment(s):* 10/09/2021 8:30 am - Kevin Polanco M.D. at [facility] Functional Status Functional Condition Comment Date Status ADL's.independent.all ADL's Acti ve Mental Status Description No Information Available Referrals Refer to Dr Reason for Referral Status Appt Date [facility] Orthopedics [facility] orthopedics left sciatica, eval and rx Sent 04/11/2021 [address] [address] [place] [address] [phone] [facility] Nurse Practitioners pearly lesion on lower lip- [place] [address] [facility] [address] [place] [address] [phone]
--- OUTSIDE RECORDS SUMMARY | 2021-06-05 06:33 | CCD | Continuity of Care Document ---
Author Author Mc SANTOS PA Organization Unknown Address [address] [place] [address] [place] [address] Phone [phone] Care Team Providers Care Air Boatswain Name Role Phone Kevin Polanco MD AUTM [phone] Problems Description No Information Available Social History [...] by mouth every 8 hours as needed 15tabs M54.5 Donald Carpenter JR., M.D. 03/11/2021 Simvastatin [...] Available Procedures Date Code Description Status 03/11/2021 95393 Office/Outpatient Established Lo w MDM 20-29 Min Completed 03/03/2021 14486 Office/Outpatient Established Lo w MDM 20-29 Min [...]
--- OUTSIDE RECORDS SUMMARY | 2021-06-05 06:33 | CCD ---
Continuity of Care Document (CCD) Created on: 05/27/2021 Nguyen Mc Palafox External Reference #: [id number] : 1950 Sex: Male Author Organization Unknown Address Unknown Phone Unavailable [...] three times a day as needed pain [id number] 90tabs Aj Polanco M.D. 08/12/2017 Simvastatin 40mg Tablets 1 by mouth every day 90tabs Kevin Polanco M.D. 06/13/20 13 Immunizations CPT Code Status Date Vaccine Lot # [id number] Refused 06/18/2018 Influenza Virus Vaccine, Quadrivalent, Slit Virus, Im Use 3Y & Up Vital Signs Date Vital Result Comment 05/21/2021 10:18am BP Systolic 114 mmHg BP Diastolic 74 mmHg Body Temperature 98.5 F Heart Rate 70 /min Respiratory Rate 18 /min Height 72 inches 6'0" Weight 233.00 lb [place] Body Weight 178 lb BMI (Body Mass [...] % 36.0-66.0 Lymph % 27.6 % 24.0-44.0 [place] % 11.6 % High 2.0-8.0 Eos % 2.0 % 0.0-3.0 Baso % 0.8 % 0.0-1.0 Immature Granulocyte % 0.3 % 0-3.0 Nucleated Red Blood Cell % 0.0 % 0-0 Neutrophils # 3.8 10 1.5-8.5 Lymph # 1.8 10 1.5-5.0 [place] # 0.8 10 0.0-0.8 Eos # 0.1 [...] 0-99 Comment: TNP Laboratory test finding 04/08/2021 [facility] Hemoglobin A1c 5.7 % [...] Little GFR Left ESRD GFR <15 on TROUBLE DISPATCHER 3 THERAPUTIC HUMAN INR VALUES INDICATIONS NORMAL [...] force. Procedures Date Code Description Status 05/21/2021 47283 Office/Outpatient Established Mo d MDM 30-39 Min Completed 04/08/2021 94919 Office/Outpatient Established Mo d MDM 30-39 Min Completed Medical Devices Description No Information Available Encounters Type Date Location Provider Dx Diagnosis Office Visit 05/21/2021 10:20a [facility] Kevin Polanco M. D. Z01.810 Encounter for preprocedural cardiovascular examination Office Visit 04/08/2021 8:30a [facility] Kevin Polanco M. D. I10 Essential (primary) hypertension R73.01 Impaired fasting glucose E78.5 Hyperlipidemia, unspecified M54.32 Sciatica, left side Assessments Date Code Description Provider 05/21/2021 Z01.810 Encounter for preprocedural card iovascular examination Kevin Polanco M.D. 04/08/2021 I10 Essential (primary) hypertension Kevin Polanco M.D. 04/08/2021 R73.01 Impaired fasting glucose Kevin Garcia M.D. 04/08/2021 E78.5 Hyperlipidemia, unspecified [facility] Kevin siddiqui M.D. 04/08/2021 M54.32 Sciatica, left side Giovanny Polanco M.D. Plan of Treatment Future Appointment(s):* 10/09/2021 8:30 am - Kevin Polanco M.D. at [facility] Functional Status Functional Condition Comment Date Status ADL's.independent.all ADL's Acti ve Mental Status Description No Information Available Referrals Refer to Dr Reason for Referral Status Appt Date [facility] Orthopedics [facility] orthopedics left sciatica, eval and rx Sent 04/11/2021 [address] [place] [address] [phone] [facility] Nurse Practitioners pearly lesion on lower lip- eval an d rx Sent [address] [facility] [address] [place] [address] [phone]
--- OUTSIDE RECORDS SUMMARY | 2021-06-05 06:33 | CCD | Continuity of Care Document ---
Author Author Mc GRAVES SENIOR ENERGY ANALYST-C Organization Unknown Address [address] [place] [address] Phone [phone] Care Team Providers Care Biometrics Consultant Name Role Phone Kevin Polanco MD [facility] [phone] Problems Description No Information Available Social History Type Date Description Comments Sex Unknown Tobacco Use Start: Unknown End: Unknown Former Cigarette Smo ker Quit 2000 ETOH Use Occasionally consumes alcohol Sun Exposure moderate amount of sun exposure Sun Exposure Has experienced blistering from sunburns Sun Exposure History of sunburns during child kan Sun Exposure Uses > 30 SPF Allergies, Adverse Reactions, Alerts Description No Known Drug Allergies Medications Active Medications SIG Qnty Indications Ordering Provide r Date Diovan Tablets Unknown Simvastatin Tablets Unknown Immunizations Description No Information Available Vital Signs Date Vital Result Comment 04/10/2021 3:02pm BP Systolic 132 mmHg BP Diastolic 82 mmHg Weight 227.00 lb Height 72 inches 6'0" BMI (Body Mass Index) 30.8 kg/m2 09/06/2014 8:15am BP Systolic 170 mmHg BP Diastolic 88 mmHg Results Test Acquired Date Facility Test Result H/L Range Note BXDX Pathology 04/10/2021 [facility] Icd9 Code ICD9 Code: C44.0 <SEE NOTE> 1 PDFReport SEE IMAGE 1 ICD9 Code: C44.00 Protocol: anel Clinical Text: SCC Final Diagnosis: SQUAMOUS CELL CARCINOMA, WELL DIFFERENTIATED, WITH KERATOACANTHOMATOUS ARCHITECTURE. Gross Text: The specimen grossly was circular in shape and measured 6 mm. in diameter and 2 mm. deep. It was divided into 2 sections. All of the tissue was submitted for processing. Microscopic Description: There is an exo-endophytic neoplasm with a central keratin filled crater. The neoplasm is composed of atypical keratinocytes with abundant pale staining cytoplasm. CPT: 89766*1 Procedures Date Code Description Status 04/10/2021 75591 Office/Outpatient New Moderate M DM 45-59 Minutes Completed 04/10/2021 16530 Shave Biopsy Of Skin, Single Les ion Completed Medical Devices Description No Information Available Encounters Type Date Location Provider Dx Diagnosis Office Visit 04/10/2021 3:30p Main Office ROGER Chao D4 8.5 Neoplasm of uncertain behavior of skin Assessments Date Code Description Provider 04/10/2021 D48.5 Neoplasm of uncertain behavior o f skin Gia Roland F.N.PVeena 04/10/2021 D48.5 Neoplasm of uncertain behavior o f skin ROGER Chao Plan of Treatment Future Appointment(s):* 06/11/2021 7:00 am - ROGER Chao at Main Office 04/10/2021 - ROGER Chao* D48.5 Neoplasm of uncertain behavior of skin* Comments:* Shave biopsy today, L lower lip - SCCDiscussed risks of biopsy to includes scarring, infection, need for further treatment. Alternative to the biopsy is watchful waitingInformed consent for biopsy signed and photographs takenVerified , name and sites. The area was prepped with alcohol and anesthestized with 1% Lidocaine with Epinephrine. The wound was dressed with band-aid and Vaseline. Patient tolerated well with no complications. Specimen sent to pathology Wound care instructions given Will call with pathology when availableInstructed to call with any problems * Follow up:* 1-2 months - [facility] Functional Status Description No Information Available Mental Status Description No Information Available Referrals Description No Information Available
--- OUTSIDE RECORDS SUMMARY | 2021-06-05 06:33 | CCD | Continuity of Care Document ---
Author Author Mc RIZO DO Organization Unknown Address [address] [place] [address], [facility] [place] [address] Phone [phone] Care Team Providers Care Customs Import Specialist Name Role Phone Kevin Polanco M.D. AUTM [phone] Problems Active Problems Provider Date Essential hypertension [...] Information Available Procedures Date Code Description Status 05/08/2021 02552 Office/Outpatient Established Mo d MDM 30-39 Min Completed 05/01/2021 96886 Office/Outpatient Established Mo d MDM 30-39 Min Completed 04/11/2021 01639 Office/Outpatient New Low MDM 30 -44 Minutes Completed Medical Devices Description No Information Available Encounters Type Date Location Provider Dx Diagnosis Office Visit 05/08/2021 9:40a [facility] Lakia Rizo DO M51.16 Intervertebral disc disorders w radiculo teo, lumbar region M48.062 Spinal stenosis, lumbar george on with neurogenic claudication M43.06 Spondylolysis, lumbar region Office Visit 05/01/2021 9:20a [facility] Lakia Rizo DO M51.16 Intervertebral disc disorders w radiculo teo, lumbar region Office Visit 04/11/2021 9:00a [facility] Lakia Rizo DO M48.062 Spinal stenosis, lumbar region with neur ogenic claudication M43.06 Spondylolysis, lumbar region Assessments Date Code Description Provider 05/08/2021 M51.16 Intervertebral disc disorders with radiculopathy, lumbar region Manny Rizo, 05/08/2021 M48.062 Spinal stenosis, lumbar region w ith neurogenic claudication Manny Rizo, 05/08/2021 M43.06 Spondylolysis, lumbar region Manny Rizo, 05/01/2021 M51.16 Intervertebral disc disorders with radiculopathy, lumbar region Manny Rizo, DO 04/11/2021 M48.062 Spinal stenosis, lumbar region w ith neurogenic claudication Manny Rizo, 04/11/2021 M43.06 Spondylolysis, lumbar region Manny Rizo, Plan of Treatment No Information Available Functional Status Description No Information Available Mental Status Description No Information Available Referrals Description No Information Available
--- OUTSIDE RECORDS SUMMARY | 2021-06-05 06:33 | CCD | Continuity of Care Document ---
Author Author Mc POLANCO M.D. Organization Unknown Address 3 [facility] 3 [place] [address] Phone [phone] Problems Active Problems Provider Date Essential hypertension [...] three times a day as needed pain [id number] 90tabs Aj Polanco M.D. 08/12/2017 Simvastatin 40mg Tablets 1 by mouth every day 90tabs Kevin Polanco M.D. 06/13/20 13 Immunizations CPT Code Status Date Vaccine Lot # [id number] Refused 06/18/2018 Influenza Virus Vaccine, Quadrivalent, Slit Virus, Im Use 3Y & Up Vital Signs Date Vital Result Comment 05/21/2021 10:18am BP Systolic 114 mmHg BP Diastolic 74 mmHg Body Temperature 98.5 F Heart Rate 70 /min Respiratory Rate 18 /min Height 72 inches 6'0" Weight 233.00 lb [place] Body Weight 178 lb BMI (Body Mass [...] force. Procedures Date Code Description Status 05/21/2021 18661 Office/Outpatient Established Mo d MDM 30-39 Min Completed 04/08/2021 71974 Office/Outpatient Established Mo d MDM 30-39 Min Completed Medical Devices Description No Information Available Encounters Type Date Location Provider Dx Diagnosis Office Visit 05/21/2021 10:20a [facility] Kevin Polanco M. D. Z01.810 Encounter for preprocedural cardiovascular examination Office Visit 04/08/2021 8:30a [facility] Kevin Polanco M. D. I10 Essential (primary) hypertension R73.01 Impaired fasting glucose E78.5 Hyperlipidemia, unspecified M54.32 Sciatica, left side Assessments Date Code Description Provider 05/21/2021 Z01.810 Encounter for preprocedural card iovascular examination Kevin Polanco M.D. 04/08/2021 I10 Essential (primary) hypertension Kevin Polanco M.D. 04/08/2021 R73.01 Impaired fasting glucose Kevin Garcia M.D. 04/08/2021 E78.5 Hyperlipidemia, unspecified [facility] helKevin ghotra M.D. 04/08/2021 M54.32 Sciatica, left side Giovanny Polanco M.D. Plan of Treatment Future Appointment(s):* 10/09/2021 8:30 am - Kevin Polanco M.D. at [facility] Functional Status Functional Condition Comment Date Status ADL's.independent.all ADL's Acti ve Mental Status Description No Information Available Referrals Refer to Reason for Referral Status Appt Date [facility] Orthopedics [facility] orthopedics left sciatica, eval and rx Sent 04/11/2021 [address] [facility] [address] [phone] [facility] Nurse Practitioners pearly lesion on lower lip- eval [place] [address] [facility] [address] [place] [address] [phone]
--- OUTSIDE RECORDS SUMMARY | 2021-06-05 06:33 | CCD | Continuity of Care Document ---
[...] three times a day as needed pain [id number] 90tabs Aj Polanco M.D. 08/12/2017 Simvastatin 40mg Tablets 1 by mouth every day 90tabs Kevin Polanco M.D. 06/13/20 13 Immunizations CPT Code Status Date Vaccine Lot # [id number] Refused 06/18/2018 Influenza Virus Vaccine, Quadrivalent, Slit Virus, Im Use 3Y & Up Vital Signs Date Vital Result Comment 05/21/2021 10:18am BP Systolic 114 mmHg BP Diastolic 74 mmHg Body Temperature 98.5 F Heart Rate 70 /min Respiratory Rate 18 /min Height 72 inches 6'0" Weight 233.00 lb [place] Body Weight 178 lb BMI (Body Mass [...] % 36.0-66.0 Lymph % 27.6 % 24.0-44.0 [place] % 11.6 % High 2.0-8.0 Eos % 2.0 % 0.0-3.0 Baso % 0.8 % 0.0-1.0 Immature Granulocyte % 0.3 % 0-3.0 Nucleated Red Blood Cell % 0.0 % 0-0 Neutrophils # 3.8 10 1.5-8.5 Lymph # 1.8 10 1.5-5.0 [place] # 0.8 10 0.0-0.8 Eos # 0.1 [...] 0-99 Comment: TNP Laboratory test finding 04/08/2021 [facility] Hemoglobin A1c 5.7 % [...] Little GFR Left ESRD GFR <15 on GUEST SERVICES COORDINATOR 3 THERAPUTIC HUMAN INR VALUES INDICATIONS NORMAL [...] force. Procedures Date Code Description Status 05/21/2021 35217 Office/Outpatient Established Mo d MDM 30-39 Min Completed 04/08/2021 91737 Office/Outpatient Established Mo d MDM 30-39 Min Completed Medical Devices Description No Information Available Encounters Type Date Location Provider Dx Diagnosis Office Visit 05/21/2021 10:20a [place] [facility] Kevin Polanco M. D. Z01.810 Encounter for preprocedural cardiovascular examination Office Visit 04/08/2021 8:30a [facility] Kevin Polanco M. D. I10 Essential (primary) hypertension R73.01 Impaired fasting glucose E78.5 Hyperlipidemia, unspecified M54.32 Sciatica, left side Assessments Date Code Description Provider 05/21/2021 Z01.810 Encounter for preprocedural card iovascular examination Kevin Polanco M.D. 04/08/2021 I10 Essential (primary) hypertension Kevin Polanco M.D. 04/08/2021 R73.01 Impaired fasting glucose Kevin Garcia M.D. 04/08/2021 E78.5 Hyperlipidemia, unspecified [facility] Kevin siddiqui M.D. 04/08/2021 M54.32 Sciatica, left side Giovanny Polanco M.D. Plan of Treatment Future Appointment(s):* 10/09/2021 8:30 am - Kevin Polanco M.D. at [facility] [place] Functional Status Functional Condition Comment Date Status ADL's.independent.all ADL's Acti ve Mental Status Description No Information Available Referrals Refer to Dr Reason for Referral Status Appt Date [facility] Orthopedics [facility] orthopedics left sciatica, eval and rx Sent 04/11/2021 [address] [address] [phone] [facility] Nurse Practitioners pearly lesion on lower lip- eval [place] Sent [address] [facility] [address] [place] [address] [phone]
--- OUTSIDE RECORDS SUMMARY | 2021-06-05 06:33 | CCD ---
Continuity of Care Document (CCD) Created on: 04/11/2021 Nguyen Jaysonkailey External Reference #: [id number] : [id number] Sex: Male Author Author Mc RIZO DO Organization Unknown Address [address] [place] [address], [facility] [address] Phone [phone] Care Team Providers Care Liquor Commissioner Name Role Phone Kevin Polanco M.D. AUTM [phone] Problems Active Problems Provider Date Essential hypertension [...] F Results Description No Information Available Procedures Description No Information Available Medical Devices Description No Information Available Encounters Description No Information Available Assessments Description No Information Available Plan of Treatment No Information Available Functional Status Description No Information Available Mental Status Description No Information Available Referrals Description No Information Available
--- OUTSIDE RECORDS SUMMARY | 2021-06-05 06:33 | CCD | Continuity of Care Document ---
Author Author Mc POLANCO M.D. Organization Unknown Address [address] [address] Phone [phone] Problems Active Problems Provider Date Essential hypertension [...] three times a day as needed pain [id number] 90tabs Aj Polanco M.D. 08/12/2017 Simvastatin 40mg Tablets 1 by mouth every day 90tabs Kevin Polanco M.D. 06/13/20 13 Immunizations CPT Code Status Date Vaccine Lot # [id number] Refused 06/18/2018 Influenza Virus Vaccine, Quadrivalent, Slit [...] force. Procedures Date Code Description Status 04/08/2021 44259 Office/Outpatient Established Mo d MDM 30-39 Min Completed Medical Devices Description No Information Available Encounters Type Date Location Provider Dx Diagnosis Office Visit 04/08/2021 8:30a [place] [facility] Kevin Polanco M. D. I10 Essential (primary) hypertension R73.01 Impaired fasting glucose E78.5 Hyperlipidemia, unspecified M54.32 Sciatica, left side Assessments Date Code Description Provider 04/08/2021 I10 Essential (primary) hypertension Kevin Polanco M.D. 04/08/2021 R73.01 Impaired fasting glucose Kevin Garcia M.D. 04/08/2021 E78.5 Hyperlipidemia, unspecified [facility] Kevin siddiqui M.D. 04/08/2021 M54.32 Sciatica, left side Giovanny Polanco M.D. Plan of Treatment No Information Available Functional Status Functional Condition Comment Date Status ADL's.independent.all ADL's Acti ve Mental Status Description No Information Available Referrals Refer to Dr Reason for Referral Status Appt Date [facility] Orthopedics [facility] orthopedics left sciatica, eval and rx Sent [address] [facility] [address] [place] [address] [phone] [facility] Nurse Practitioners pearly lesion on lower lip- eval an [place] [address] [facility] [address] [place] [address] [phone]
--- OUTSIDE RECORDS SUMMARY | 2021-06-05 06:33 | CCD | Continuity of Care Document ---
Author Author Mc POLANCO M.D. Organization Unknown Address 3 [facility] 3 [place] [address] Phone [phone] Problems Active Problems Provider Date Essential hypertension [...] three times a day as needed pain [id number] 90tabs Aj Polanco M.D. 08/12/2017 Simvastatin 40mg Tablets 1 by mouth every day 90tabs Kevin Polanco M.D. 06/13/20 13 Immunizations CPT Code Status Date Vaccine Lot # [id number] Refused 06/18/2018 Influenza Virus Vaccine, Quadrivalent, Slit Virus, Im Use 3Y & Up Vital Signs Date Vital Result Comment 04/08/2021 8:22am BP Systolic 122 mmHg BP Diastolic 78 mmHg Heart Rate 72 /min Respiratory Rate 14 /min Weight 227.00 lb 10/01/2020 8:25am BP Systolic 124 mmHg BP Diastolic 80 mmHg Heart Rate 72 /min Respiratory Rate 14 /min Weight 239.00 lb Results Description No Information Available Procedures Date Code Description Status 04/08/2021 31308 Office/Outpatient Established Mo d MDM 30-39 Min Completed Medical Devices Description No Information Available Encounters Type Date Location Provider Dx Diagnosis Office Visit 04/08/2021 8:30a [facility] Kevin Polanco M. D. I10 Essential (primary) hypertension R73.01 Impaired fasting glucose E78.5 Hyperlipidemia, unspecified M54.32 Sciatica, left side Assessments Date Code Description Provider 04/08/2021 I10 Essential (primary) hypertension Kevin Polanco M.D. 04/08/2021 R73.01 Impaired fasting glucose Kevin Garcia M.D. 04/08/2021 E78.5 Hyperlipidemia, unspecified [facility] Kevin siddiqui M.D. 04/08/2021 M54.32 Sciatica, left side Giovanny Polanco M.D. Plan of Treatment No Information Available Functional Status Functional Condition Comment Date Status ADL's.independent.all ADL's Acti ve Mental Status Description No Information Available Referrals Refer to Reason for Referral Status Appt Date [facility] orthopedics left sciatica, eval and rx Crea deja [facility] Dermatology pearly lesion on lower lip- eval and rx Created [address] [address] [phone]
--- OUTSIDE RECORDS SUMMARY | 2021-06-05 06:33 | CCD | Continuity of Care Document ---
Author Author Mc POLANCO M.D. Organization Unknown Address 3 [facility] 3 [place] [address] Phone [phone] Problems Active Problems Provider Date Essential hypertension [...] three times a day as needed pain [id number] 90tabs Aj Polanco M.D. 08/12/2017 Simvastatin 40mg Tablets 1 by mouth every day 90tabs Kevin Polanco M.D. 06/13/20 13 Immunizations CPT Code Status Date Vaccine Lot # [id number] Refused 06/18/2018 Influenza Virus Vaccine, Quadrivalent, Slit [...] Date Facility Test Result H/L Range Note Laboratory test finding 04/08/2021 [facility] Hemoglobin A1c 5.7 % 4.50-6.20 Procedures Date Code Description Status 04/08/2021 44104 Office/Outpatient Established Mo d MDM 30-39 Min Completed Medical Devices Description No Information Available Encounters Type Date Location Provider Dx Diagnosis Office Visit 04/08/2021 8:30a [place] [facility] Kevin Polanco M. D. I10 Essential (primary) hypertension R73.01 Impaired fasting glucose E78.5 Hyperlipidemia, unspecified M54.32 Sciatica, left side Assessments Date Code Description Provider 04/08/2021 I10 Essential (primary) hypertension Kevin Polanco M.D. 04/08/2021 R73.01 Impaired fasting glucose Kevin Garcia M.D. 04/08/2021 E78.5 Hyperlipidemia, unspecified [facility] Kevin siddiqui M.D. 04/08/2021 M54.32 Sciatica, left side Giovanny Polanco M.D. Plan of Treatment No Information Available Functional Status Functional Condition Comment Date Status ADL's.independent.all ADL's Acti ve Mental Status Description No Information Available Referrals Refer to Reason for Referral Status Appt Date [facility] Orthopedics [facility] orthopedics left sciatica, eval and rx Crea deja [address] [facility] [address] [phone] [facility] Nurse Practitioners pearly lesion on lower lip- eval an d rx Created [address] [facility] [address] [place] [address] [phone]
--- OUTSIDE RECORDS SUMMARY | 2021-06-05 06:34 | CCD ---
Author Author [facility] Organization [facility] Address Unknown Phone Unavailable Care Team Providers Care General Merchandise Manager Name Role Phone Donald KIM MD Unavailable Unavailable Donald KIM MD Unavailable Unavailable Donald KIM MD Unavailable Unavailable Donald KIM MD Unavailable Unavailable Donald KIM MD Unavailable Unavailable Donald KIM MD Unavailable Unavailable Donald KIM MD Unavailable Unavailable Donald KIM MD Unavailable Unavailable Donald KIM MD Unavailable Unavailable Donald KIM MD Unavailable Unavailable Donald KIM MD Unavailable Unavailable Donald KIM MD Unavailable Unavailable Donald KIM MD Unavailable Unavailable Donald KIM MD Unavailable Unavailable Donald KIM MD Unavailable Unavailable Donald KIM MD Unavailable Unavailable Donald IKM MD Unavailable Unavailable Donald KIM MD Unavailable Unavailable Donald KIM MD Unavailable Unavailable Donald KIM MD Unavailable Unavailable Donald KIM MD Unavailable Unavailable Donald KIM MD Unavailable Unavailable Donald KIM MD Unavailable Unavailable Donald KIM MD Unavailable Unavailable Donald KIM MD Unavailable Unavailable Donald KIM MD Unavailable Unavailable Donald KIM MD Unavailable Unavailable Donald KIM MD Unavailable Unavailable Donald KIM MD Unavailable Unavailable Donald KIM MD Unavailable Unavailable Donald KIM MD Unavailable Unavailable Donald KIM MD Unavailable Unavailable Donald KIM MD Unavailable Unavailable Donald KIM MD Unavailable Unavailable Donald KIM MD Unavailable Unavailable Donald KIM MD Unavailable Unavailable Donald KIM MD Unavailable Unavailable Donald KIM MD Unavailable Unavailable Donald KIM MD Unavailable Unavailable Donald KIM MD Unavailable Unavailable Donald KIM MD Unavailable Unavailable Donald KIM MD Unavailable Unavailable Donald KIM MD Unavailable Unavailable Donald KIM MD Unavailable Unavailable Donald KIM MD Unavailable Unavailable Donald KIM MD Unavailable Unavailable Donald KIM MD Unavailable Unavailable Donald KIM MD Unavailable Unavailable Donald KIM MD Unavailable Unavailable Donald KIM MD Unavailable Unavailable Donald KIM MD Unavailable Unavailable Donald KIM MD Unavailable Unavailable Donald KIM MD Unavailable Unavailable Donald KIM MD Unavailable Unavailable Donald KIM MD Unavailable Unavailable Donald KIM MD Unavailable Unavailable Donald KIM MD Unavailable Unavailable Donald KIM MD Unavailable Unavailable Donald KIM MD Unavailable Unavailable Donald KIM MD Unavailable Unavailable Donald KIM MD Unavailable Unavailable Donald KIM MD Unavailable Unavailable Donald KIM MD Unavailable Unavailable Donald KIM MD Unavailable Unavailable Donald KIM MD Unavailable Unavailable Donald KIM MD Unavailable Unavailable Donald KIM MD Unavailable Unavailable Donald KIM MD Unavailable Unavailable Donald KIM MD Unavailable Unavailable Donald KIM MD Unavailable Unavailable Donald KIM MD Unavailable Unavailable Donald KIM MD Unavailable Unavailable Donald KIM MD Unavailable Unavailable Donald KIM MD Unavailable Unavailable Donald KIM MD Unavailable Unavailable Donald KIM MD Unavailable Unavailable GRAVES, C VITA FITNESS AND WELLNESS MANAGER Unavailable Unavailable GRAVES, C VITA FITNESS AND WELLNESS MANAGER Unavailable Unavailable GRAVES, C VITA FITNESS AND WELLNESS MANAGER Unavailable Unavailable GRAVES, C VITA FITNESS AND WELLNESS MANAGER Unavailable Unavailable GRAVES, C VITA FITNESS AND WELLNESS MANAGER Unavailable Unavailable GRAVES, C VITA FITNESS AND WELLNESS MANAGER Unavailable Unavailable GRAVES, C VITA FITNESS AND WELLNESS MANAGER Unavailable Unavailable GRAVES, C VITA FITNESS AND WELLNESS MANAGER Unavailable Unavailable GRAVES, C VITA FITNESS AND WELLNESS MANAGER Unavailable Unavailable GRAVES, C VITA FITNESS AND WELLNESS MANAGER Unavailable Unavailable GRAVES, C VITA FITNESS AND WELLNESS MANAGER Unavailable Unavailable GRAVES, C VITA FITNESS AND WELLNESS MANAGER Unavailable Unavailable GRAVES, C VITA FITNESS AND WELLNESS MANAGER Unavailable Unavailable GRAVES, C VITA FITNESS AND WELLNESS MANAGER Unavailable Unavailable GRAVES, C VITA FITNESS AND WELLNESS MANAGER Unavailable Unavailable GRAVES, C VITA FITNESS AND WELLNESS MANAGER Unavailable Unavailable GRAVES, C VITA FITNESS AND WELLNESS MANAGER Unavailable Unavailable GRAVES, C VITA FITNESS AND WELLNESS MANAGER Unavailable Unavailable GRAVES, C VITA FITNESS AND WELLNESS MANAGER Unavailable Unavailable GRAVES, C VITA FITNESS AND WELLNESS MANAGER Unavailable Unavailable Mandappa, Danielle CASAC Unavailable Unavailable Mandappa, Danielle CASAC Unavailable Unavailable Mandappa, Danielle CASAC Unavailable Unavailable Mandappa, Danielle CASAC Unavailable Unavailable JOE GALLAGHER MD Unavailable Unavailable JOE GALLAGHER MD Unavailable Unavailable VanArnam JR, W Rui PA Unavailable Unavailable VanArnam JR, W Rui PA Unavailable Unavailable VanArnam JR, W Rui PA Unavailable Unavailable VanArnam JR, W Rui PA Unavailable Unavailable VanArnam JR, W Rui PA Unavailable Unavailable VanArnam JR, W Rui PA Unavailable Unavailable VanArnam JR, W Rui PA Unavailable Unavailable VanArnam JR, W Rui PA Unavailable Unavailable VanArnam JR, W Rui PA Unavailable Unavailable VanArnam JR, W Rui PA Unavailable Unavailable VanArnam JR, W Rui PA Unavailable Unavailable VanArnam JR, W Rui PA Unavailable Unavailable VanArnam JR, W Rui PA Unavailable Unavailable VanArnam JR, W Rui PA Unavailable Unavailable VanArnam JR, W Rui PA Unavailable Unavailable VanArnam JR, W Rui PA Unavailable Unavailable VanArnam JR, W Rui PA Unavailable Unavailable VanArnam JR, W Rui PA Unavailable Unavailable VanArnam JR, W Rui PA Unavailable Unavailable VanArnam JR, W Rui PA Unavailable Unavailable VanArnam JR, W Rui PA Unavailable Unavailable VanArnam JR, W Rui PA Unavailable Unavailable VanArnam JR, W Rui PA Unavailable Unavailable VanArnam JR, W Rui PA Unavailable Unavailable VanArnam JR, W Rui PA Unavailable Unavailable VanArnam JR, W Rui PA Unavailable Unavailable VanArnam JR, W Rui PA Unavailable Unavailable VanArnam JR, W Rui PA Unavailable Unavailable VanArnam JR, W Rui PA Unavailable Unavailable VanArnam JR, W Rui PA Unavailable Unavailable VanArnam JR, W Rui PA Unavailable Unavailable VanArnam JR, W Rui PA Unavailable Unavailable VanArnam JR, W Rui PA Unavailable Unavailable VanArnam JR, W Rui PA Unavailable Unavailable VanArnam JR, W Rui PA Unavailable Unavailable VanArnam JR, W Rui PA Unavailable Unavailable VanArnam JR, W Rui PA Unavailable Unavailable VanArnam JR, W Rui PA Unavailable Unavailable VanArnam JR, W Rui PA Unavailable Unavailable VanArnam JR, W Rui PA Unavailable Unavailable VanArnam JR, W Rui PA Unavailable Unavailable VanArnam JR, W Rui PA Unavailable Unavailable VanArnam JR, W Rui PA Unavailable Unavailable BE, OSCAR PA Unavailable Unavailable BE, OSCAR PA Unavailable Unavailable BE, OSCAR PA Unavailable Unavailable BE, OSCAR PA Unavailable Unavailable BE, OSCAR PA Unavailable Unavailable BE, OSCAR PA Unavailable Unavailable BE, OSCAR PA Unavailable Unavailable BE, OSCAR PA Unavailable Unavailable BE, OSCAR PA Unavailable Unavailable BE, OSCAR PA Unavailable Unavailable BE, OSCAR PA Unavailable Unavailable BE, OSCAR PA Unavailable Unavailable BE, OSCAR PA Unavailable Unavailable BE, OSCAR PA Unavailable Unavailable BE, OSCAR PA Unavailable Unavailable BE, OSCAR PA Unavailable Unavailable BE, OSCAR PA Unavailable Unavailable BE, OSCAR PA Unavailable Unavailable BE, OSCAR PA Unavailable Unavailable BE, OSCAR PA Unavailable Unavailable BE, OSCAR PA Unavailable Unavailable BE, OSCAR PA Unavailable Unavailable BE, OSCAR PA Unavailable Unavailable BE, OSCAR PA Unavailable Unavailable BE, OSCAR PA Unavailable Unavailable BE, OSCAR PA Unavailable Unavailable BE, OSCAR PA Unavailable Unavailable BE, OSCAR PA Unavailable Unavailable BE, OSCAR PA Unavailable Unavailable BE, OSCAR PA Unavailable Unavailable BE, OSCAR PA Unavailable Unavailable BE, OSCAR PA Unavailable Unavailable BE, OSCAR PA Unavailable Unavailable BE, OSCAR PA Unavailable Unavailable BE, OSCAR PA Unavailable Unavailable BE, OSCAR PA Unavailable Unavailable RING, K YANNI PA Unavailable Unavailable RING, K YANNI PA Unavailable Unavailable RING, K YANNI PA Unavailable Unavailable RING, K YANNI PA Unavailable Unavailable RING, K YANNI PA Unavailable Unavailable RING, K YANNI PA Unavailable Unavailable RING, K YANNI PA Unavailable Unavailable RING, K YANNI PA Unavailable Unavailable RING, K YANNI PA Unavailable Unavailable RING, K YANNI PA Unavailable Unavailable RING, K YANNI PA Unavailable Unavailable RING, K YANNI PA Unavailable Unavailable RING, K YANNI PA Unavailable Unavailable RING, K YANNI PA Unavailable Unavailable RING, K YANNI PA Unavailable Unavailable RING, K YANNI PA Unavailable Unavailable RING, K YANNI PA Unavailable Unavailable RING, K YANNI PA Unavailable Unavailable RING, K YANNI PA Unavailable Unavailable RING, K YANNI PA Unavailable Unavailable RING, K YANNI PA Unavailable Unavailable Re-disclosure Warning The records that you are about to access may contain information from federally-assisted alcohol or drug abuse programs. If such information is present, then the following federally mandated warning applies: This information has been disclosed to you from records protected by federal confidentiality rules (42 CFR part 2). The federal rules prohibit you from making any further disclosure of this information unless further disclosure is expressly permitted by the written consent of the person to whom it pertains or as otherwise permitted by 42 CFR part 2. A general authorization for the release of medical or other information is NOT sufficient for this purpose. The Federal rules restrict any use of the information to criminally investigate or prosecute any alcohol or drug abuse patient.The records that you are about to access may contain highly sensitive health information, the redisclosure of which is protected by Article 27-F of the [facility] Public Health law. If you continue you may have access to information: Regarding HIV / AIDS; Provided by facilities licensed or operated by the [facility] Office of Mental Health; or Provided by the [facility] Office for People With Developmental Disabilities. If such information is present, then the following [facility] mandated warning applies: This information has been disclosed to you from confidential records which are protected by state law. State law prohibits you from making any further disclosure of this information without the specific written consent of the person to whom it pertains, or as otherwise permitted by law. Any unauthorized further disclosure in violation of state law may result in a fine or penitentiary sentence or both. A general authorization for the release of medical or other information is NOT sufficient authorization for further disc losure. Family History Family Member Name Family Member Gender Family Member Status Date o f Status Description Data Source(s) Unknown Male Problem [facility] ([facility] Unknown Unknown Problem [facility] ([facility]) Encounters Encounter Providers Location Date Indications Data Source(s ) Outpatient Attender: PERI KIM MD [facility] 12/2020 10:20:00 AM EDT [facility] ([facility] Outpatient Attender: JOE Baires/Kelton/Jony/ Mirella 05/08/2021 09:40:00 AM EDT [facility] ([facility] Outpatient Attender: JOE Garza/Jony/ Reinkathy 05/01/2021 09:20:00 AM EDT [facility] ([facility] Outpatient Attender: JOE Baires/Kelton/Jony/ Mirella 04/11/2021 09:00:00 AM EDT [facility] ([facility] Outpatient Attender: VITA GRAVES [facility] Main Office 04/10/2021 0 3:30:00 PM EDT [facility] ([facility]) Outpatient Attender: PERI KIM MD [facility] 08:30:00 AM EDT [facility] ([facility] Recurring Patient Referrer: Rui Wallace JR 03/13/2021 04:03:19 PM EDT [facility] Recurring Patient Referrer: Rui Wallace JR 03/13/2021 04:00:55 PM EDT [facility] Recurring Patient Referrer: Danielle SERRA 03/13/2021 03:56:58 PM EDT [facility] Outpatient Attender: YANNI Thomas Primary 03/11/2021 08:10:00 AM EDT [facility] ([facility] Outpatient Attender: OSCAR Thomas Prima ry 03/03/2021 08:00:00 AM EDT [facility] ([facility] Outpatient Attender: PERI KIM MD [facility] 07:45:00 AM EST [facility] ([facility] Immunizations Vaccine Date Status Description Data Source(s) COVID-19 VACCINE Pfizer 10/03/2020 12:00:00 AM EST completed [facility] Vaccine Series Complete: YESThis Data wa s Submitted to [facility] Via [facility]. COVID-19 VACCINE Pfizer 09/12/2020 12:00:00 AM EST completed [facility] Vaccine Series Complete: NOThis Data was Submitted to [facility]. Medications Medication Brand Name Start Date Product Form Dose Route Admi nistrative Instructions Pharmacy Instructions Status Indications Reaction Description Data Source(s) 50 mg 04/08/2021 12:00:00 AM EDT tablet 90 TAKE ONE TABLET BY MOUTH THREE TIMES A DAY NEEDED FOR PAIN, MAXIMUM DAILY DOSE = 3 TAKE ONE TABLET BY MOUTH THREE TIMES A DAY NEEDED FOR PAIN, MAXIMUM DAILY DOSE = 3 SOLD: 04/09/2021 [facility] Cyclobenzaprine hydrochloride 10 MG Oral Tablet Cyclobenzapr ine HCL 03/11/2021 12:00:00 AM EDT ORAL active M EDENT ([facility]) Cyclobenzaprine hydrochloride 10 MG Oral Tablet Cyclobenzapr ine HCL 03/03/2021 12:00:00 AM EDT ORAL completed [facility] ([facility]) 50 mg 02/28/2020 12:00:00 AM EDT tablet 90 TAKE ONE TABLET BY MOUTH THREE TIMES A DAY NEEDED FOR PAIN MAXIMUM DAILY DOSE = 3 TAKE ONE TABLET BY MOUTH THREE TIMES A DAY NEEDED FOR PAIN MAXIMUM DAILY DOSE = 3 SOLD: 06/06/2020 [facility] Insurance Providers Payer name Policy type / Coverage type Policy ID Covered democrat ID Covered democrat's relationship to lowe Policy Lowe Plan Information [id number] [employer] [id number] SP [id number] MEDICARE [id number] SP [id number] A MEDICARE [id number] SP [id number] A68 Medicare C [id number] SELF [id number] A68 [place] Primary [id number] Self [id number] Medicare Natl Gov't Servi Medicare Primary [id number] Self [id number] Medicare Natl Gov't Servi Medicare Primary [id number] Self [id number] A [facility] [id number] SP [id number] R F [id number] SELF [id number] [facility] S [id number] S [id number] [facility] Medigap Part B [id number] Self [id number] MEDICARE P [id number] S [id number] A GHI/EMBLEM S [id number] S [id number] [employer] Medigap Part B [id number] Self [id number] [facility] Medigap Part B [id number] Self Problems, Conditions, and Diagnoses Code Display Name Description Problem Type Effective Dates Data Source(s) [id number] Essential hypertension Essential hypertension Problem 04/11/2021 12:00:00 AM EDT MED[facility] ([facility]) Surgeries/Procedures Procedure Description Date Indications Data Source(s) OFFICE OUTPATIENT VISIT 25 MINUTES 05/21/2021 12:00:00 AM EDT MED[facility] ([facility] OFFICE OUTPATIENT VISIT 25 MINUTES 05/08/2021 12:00:00 AM EDT MED[facility] ([facility]) OFFICE OUTPATIENT VISIT 25 MINUTES 05/01/2021 12:00:00 AM EDT MED[facility] ([facility]) OFFICE OUTPATIENT NEW 30 MINUTES 04/11/2021 12:00:00 A M EDT MED[facility] ([facility]) Shave Biopsy Of Skin, Single Lesion 04/10/2021 12:00:0 0 AM EDT MED[facility] ([facility]) OFFICE OUTPATIENT NEW 45 MINUTES 04/10/2021 12:00:00 A M EDT MED[facility] ([facility]) OFFICE OUTPATIENT VISIT 25 MINUTES 04/08/2021 12:00:00 AM EDT [facility] ([facility] OFFICE OUTPATIENT VISIT 15 MINUTES 03/11/2021 12:00:00 AM EDT MED[facility] ([facility]) OFFICE OUTPATIENT VISIT 15 MINUTES 03/03/2021 12:00:00 AM EDT MED[facility] ([facility]) Results ID Date Data Source [id number] 05/31/2021 11:25:00 AM EDT MED[facility] ([facility] Name Value Range Interpretation Code Description Data Lourdes rce(s) Supporting Document(s) Laboratory test finding (navigational concept) Laboratory test result [facility] ([facility] ASSAY INFORMATION: Real Time RT-PCR NOTE: The COVID-19 assay has been cleared by the U.S. Food and Drug Administration under the Emergency Use Authorization (EUA). [facility] are designated as high complexity laboratories by the Clinical Laboratory Improvement Amendments of 1988(CLIA) and are qualified to perform this test. Not Detected ID Date Data Source [id number] 05/21/2021 01:51:00 PM EDT [facility] ([facility] Name Value Range Interpretation Code Description Data Lourdes rce(s) Supporting Document(s) Hemoglobin A1c/Hemoglobin.total in Blood Laboratory test result [facility] ([facility] <content>REFERENCE RANGES: </content><b r/><content> </content>
<content><=5.6% NORMAL </content>
<content>5.7-6.4% SUGGESTS IMPAIRED GLUCOSE METABOLISM/PREDIABETIC </content>
<content> >= 6.5% ABNORMAL</content>
<content></content> Estimated Average Glucose Laboratory test result 60-110 Above hig h normal [facility] ([facility] ID Date Data Source [id number] 05/21/2021 01:29:00 PM EDT MED[facility] ([facility] Name Value Range Interpretation Code Description Data Lourdes rce(s) Supporting Document(s) Glucose [Mass/volume] in Serum or Plasma Laboratory test result 70-100 Above high normal [facility] ([facility] ) Blood Urea Nitrogen Laboratory test result 7-18 [facility] ([facility] Creatinine For GFR Laboratory test result 0.70-1.30 [facility] ([facility] Glomerular Filtration Rate Laboratory test result [facility] ([facility] <content>Units are mL/min/1.73 m2 </con tent>
<content> </content>
<content>Chronic Kidney Disease Staging per NKF: </content>
<content> </content>
<content>Stage I & II GFR >=60 Normal to Mildly Decreased </content>
<content>Stage III GFR 30-59 Moderately Decreased </content>
<content>Stage IV GFR 15-29 Severely Decreased </content>
<content>Stage V GFR <15 Very Little GFR Left </content>
<content>ESRD GFR <15 on DIRECTOR CUSTOM</content>
<content></content> Potassium Serum Laboratory test result 3.5-5.1 [facility] ([facility] Sodium Level Laboratory test result 136-145 [facility] ([facility] Chloride Level Laboratory test result 98-107 [facility] ([facility] Carbon Dioxide Level Laboratory test result 21-32 [facility] ([facility] Anion Gap Laboratory test result 8-16 Below low normal [facility] ([facility] Calcium Level Laboratory test result 8.8-10.2 [facility] ([facility] Aspartate aminotransferase [Enzymatic activity/volume] in Serum or Plasma Laboratory test result 7-37 [facility] ([facility] Alanine aminotransferase [Enzymatic activity/volume] i n Serum or Plasma Laboratory test result 12-78 [facility] ([facility] Alkaline phosphatase [Enzymatic activity/volume] in Se rum or Plasma Laboratory test result 45-117 [facility] ([facility] Total Protein Laboratory test result 6.4-8.2 [facility] ([facility] Bilirubin.total [Mass/volume] in Serum or Plasma Laboratory test result 0.2-1.0 [facility] ([facility] Albumin/Globulin Ratio 1.2 [facility] ([facility] Albumin [Mass/volume] in Serum or Plasma Laboratory test result 3.2-5 .2 [facility] ([facility] ID Date Data Source [id number] 05/21/2021 01:29:00 PM EDT [facility] ([facility] Name Value Range Interpretation Code Description Data Lourdes rce(s) Supporting Document(s) Phosphorus Level Laboratory test result 2.5-4.9 [facility] ([facility] ID Date Data Source [id number] 05/21/2021 12:50:00 PM EDT [facility] ([facility] Name Value Range Interpretation Code Description Data Lourdes rce(s) Supporting Document(s) ABO group [Type] in Blood Laboratory test result [facility] ([facility] AB Screen (Indirect Alysha)Vis Laboratory test result [facility] ([facility] ID Date Data Source [id number] 05/21/2021 12:22:00 PM EDT [facility] ([facility] Name Value Range Interpretation Code Description Data Lourdes rce(s) Supporting Document(s) Partial Thromboplastin Time Laboratory test result 25.9-37.0 [facility] ([facility] ID Date Data Source [id number] 05/21/2021 12:21:00 PM EDT [facility] ([facility] Name Value Range Interpretation Code Description Data Lourdes rce(s) Supporting Document(s) Prothrombin time (PT) Laboratory test result 12.7-14.5 [facility] ([facility] Inr 0.91 [facility] ([facility] THERAPUTIC HUMAN INR VALUES INDICATIONS NORMAL RANGES PROPHYLAXIS/TREATMENT OF: VENOUS THROMBOSIS 2.0-3.0 PULMONARY EMBOLISM 2.0-3.0 PREVENTION OF SYSTEMIC EMBOLISM FROM: TISSUE HEART VALVES 2.0-3.0 ACUTE MYOCARDIAL INFARCTION 2.0-3.0 VALVULAR HEART DISEASE 2.0-3.0 ATRIAL FIBRILLATION 2.0-3.0 MECHANICAL VALVES(HIGH RISK) 2.5-3.5 RECURRENT MYOCARDIAL INFARCTION 2.5-3.5 ID Date Data Source [id number] 05/21/2021 12:05:00 PM EDT [facility] ([facility] Name Value Range Interpretation Code Description Data Lourdes rce(s) Supporting Document(s) Leukocytes [#/volume] in Blood by Automated count Laboratory test result 4.0-10.0 [facility] ([facility] Erythrocytes [#/volume] in Blood by Automated count Laborato ry test result 4.30-6.10 [facility] ([facility] Hematocrit [Volume Fraction] of Blood by Automated count Lab oratory test result 42.0-52.0 [facility] ([facility] Hemoglobin [Mass/volume] in Blood Laboratory test result 13.5-17.5 [facility] ([facility] Mean Corpuscular Hemoglobin Laboratory test result 27.0-33.0 [facility] ([facility] Mean Corpuscular Volume Laboratory test result 80.0-96.0 [facility] ([facility] Mean Corpuscular HGB Conc Laboratory test result 32.0-36.5 [facility] ([facility] Red Cell Distribution Width Laboratory test result 11.5-14.5 [facility] ([facility] Neutrophils % Laboratory test result 36.0-66.0 [facility] ([facility] Platelet Count, Automated Laboratory test result 150-450 [facility] ([facility] Lymph % Laboratory test result 24.0-44.0 ME DENT ([facility] Monocytes/100 leukocytes in Blood by Automated count Laborat ory test result 2.0-8.0 Above high normal [facility] ([facility] [facility] Eos % Laboratory test result 0.0-3.0 ME DENT ([facility] Baso % Laboratory test result 0.0-1.0 [place] [facility] [place] [place] Immature Granulocyte % Laboratory test result 0-3.0 MEDENT ([facility] Neutrophils # Laboratory test result 1.5-8.5 MEDENT ([facility] Nucleated Red Blood Cell % Laboratory test result 0-0 MEDENT ([facility] Lymph # Laboratory test result 1.5-5.0 ME DENT ([facility] [place] # Laboratory test result 0.0-0.8 ME DENT ([facility] Baso # Laboratory test result 0.0-0.2 ME D[facility] ([facility] [place] Eos # Laboratory test result 0.0-0.5 ME DENT ([facility] ID Date Data Source [id number] 04/10/2021 03:20:00 PM EDT MEDENT ([facility]) Name Value Range Interpretation Code Description Data [place] rce(s) Supporting Document(s) Laboratory test finding (navigational concept) Laboratory test result MEDENT ([facility]) Laboratory test finding (navigational concept) Laboratory test result MEDENT ([facility]) ICD9 Code: C44.00 Protocol: shave Clinical Text: SCC Final Diagnosis: SQUAMOUS CELL [...] keratinocytes with abundant pale staining cytoplasm. CPT: 95236*1 ID Date Data Source [id number] 04/08/2021 10:19:00 AM EDT MEDENT ([facility] Name Value Range Interpretation Code Description Data [place] rce(s) Supporting Document(s) Cholesterol [Mass/volume] in Serum or Plasma 171 mg/dL 100-199 [facility] ([facility] Triglyceride [Mass/volume] in Serum or Plasma 115 mg/dL 0-149 [facility] ([facility] Cholesterol in HDL [Mass/volume] in Serum or Plasma 53 mg/dL [facility] ([facility] Laboratory test finding (navigational concept) 21 mg/dL 5-40 [facility] ([facility] Laboratory test finding (navigational concept) 97 mg/dL 0-99 MED[facility] ([facility] Comment: Laboratory test result [facility] ([facility] ID Date Data Source [id number] 04/08/2021 10:19:00 AM EDT MEDENT ([facility] Name Value Range Interpretation Code Description Data [place] rce(s) Supporting Document(s) Glucose [Mass/volume] in Serum or Plasma 115 mg/dL 65-99 Above high normal [facility] ([facility] BUN 21 mg/dL 8-27 [facility] Creatinine [Mass/volume] in Serum or Plasma 1.15 mg/dL 0.76-1.27 [facility] ([facility] eGFR If NonAfricn Am 65 mL/min/1.73 MED[facility] ([facility] eGFR If Africn Am 75 mL/min/1.73 MED ENT ([facility] currently reports eGFR in comp liance with the current recommendations of the National Kidney Foundation. [facility] will update reporting as new guidelines are published from the NKF-ASN Task force. Sodium [Moles/volume] in Serum or Plasma 135 mmol/L 134-144 [facility] ([facility] Urea nitrogen/Creatinine [Mass Ratio] in Serum or Plasma 18 1 0-24 [facility] ([facility] Chloride [Moles/volume] in Serum or Plasma 100 mmol/L 96-106 [facility] ([facility] Carbon dioxide, total [Moles/volume] in Serum or Plasma 21 mmol/L 20 -29 [facility] ([facility] Potassium [Moles/volume] in Serum or Plasma 4.0 mmol/L 3.5-5.2 [facility] ([facility] Albumin [Mass/volume] in Serum or Plasma 4.5 g/dL 3.8-4.8 [facility] ([facility] Protein [Mass/volume] in Serum or Plasma 6.8 g/dL 6.0-8.5 [facility] ([facility] Calcium [Mass/volume] in Serum or Plasma 9.4 mg/dL 8.6-10.2 [facility] ([facility] Globulin [Mass/volume] in Serum by calculation 2.3 g/dL 1.5-4.5 MED[facility] ([facility] Albumin/Globulin [Mass Ratio] in Serum or Plasma 2.0 1.2-2.2 MED[facility] ([facility] Bilirubin.total [Mass/volume] in Serum or Plasma 0.6 mg/dL 0.0-1.2 MED[facility] ([facility] Aspartate aminotransferase [Enzymatic activity/volume] in Serum or Plasma 24 IU/L 0-40 [facility] Alanine aminotransferase [Enzymatic activity/volume] in Seru m or Plasma 23 IU/L 0-44 [facility] ([facility] Alkaline phosphatase [Enzymatic activity/volume] in Serum or Plasma 76 IU/L 48-121 MEDENT ([facility] ID Date Data Source [id number] 04/08/2021 08:38:00 AM EDT MEDENT ([facility] Name Value Range Interpretation Code Description Data [place] rce(s) Supporting Document(s) Hemoglobin A1c/Hemoglobin.total in Blood 5.7 % 4.50-6.20 MEDENT ([facility] ID Date Data Source [id number] 10/01/2020 10:08:00 AM EST MEDENT ([facility] Name Value Range Interpretation Code Description Data [place] rce(s) Supporting Document(s) Hemoglobin A1c/Hemoglobin.total in Blood 5.6 % 4.50-6.20 MEDENT ([facility] ID Date Data Source [id number] 10/01/2020 10:08:00 AM EST MEDENT ([facility] Name Value Range Interpretation Code Description Data [place] rce(s) Supporting Document(s) Chol 172 mg/dL 0-200 MEDENT ([facility] CHRONIC KIDNEY DISEASE STAGING PER NKF: MALE GFR INTERPRETATION: 20-49 YRS: >60 mL/min Normal 50-59 YRS: >56 mL/min Normal 60-69 YRS: >49 mL/min Normal 70-79 YRS: >42 mL/min Normal 80 and above >35 mL/min Normal FEMALE GRF INTERPRETATION: 20-39 YRS: >60 mL/min Normal 40-49 YRS: >58 mL/min Normal 50-59 YRS: >51 mL/min Normal 60-69 YRS: >45 mL/min Normal 70-79 YRS: >39 mL/min Normal 80 and above >32 mL/min NormalCLASSIFICATION CHOLESTEROL FOR ADULTS CHILDREN/ADOLESCENTS* DESIRABLE: <200 MG/DL <170 MG/DL BORDER-LINE HIGH RISK: 200-239 MG/DL 170-199 MG/DL HIGH RISK: >240 MG/DL >200 MG/DL CLASS. FOR PRIMARY LDL CHOL PREVENTION: LDL CHOL-CHILD/ADOLESCENTS* DESIRABLE: <130 MG/DL <110 MG/DL BORDERLINE-HIGH RISK: 130-159 MG/DL 110-129 MG/DL HIGH RISK: >160 MG/DL >130 MG/DL *CHILDREN AND ADOLESCENTS REPRESENTS INDIVIDUALA AGED 2-19 YEARS EXCLUSIVE. Cholesterol in HDL [Mass/volume] in Serum or Plasma 56 mg/dL 35-55 Above high normal [facility] ([facility] CHRONIC KIDNEY DISEASE STAGING PER NKF: MALE GFR INTERPRETATION: 20-49 YRS: >60 mL/min Normal 50-59 YRS: >56 mL/min Normal 60-69 YRS: >49 mL/min Normal 70-79 YRS: >42 mL/min Normal 80 and above >35 mL/min Normal FEMALE GRF INTERPRETATION: 20-39 YRS: >60 mL/min Normal 40-49 YRS: >58 mL/min Normal 50-59 YRS: >51 mL/min Normal 60-69 YRS: >45 mL/min Normal 70-79 YRS: >39 mL/min Normal 80 and above >32 mL/min NormalCLASSIFICATION CHOLESTEROL FOR ADULTS CHILDREN/ADOLESCENTS* DESIRABLE: <200 MG/DL <170 MG/DL BORDER-LINE HIGH RISK: 200-239 MG/DL 170-199 MG/DL HIGH RISK: >240 MG/DL >200 MG/DL CLASS. FOR PRIMARY LDL CHOL PREVENTION: LDL CHOL-CHILD/ADOLESCENTS* DESIRABLE: <130 MG/DL <110 MG/DL BORDERLINE-HIGH RISK: 130- 159 MG/DL 110-129 MG/DL HIGH RISK: >160 MG/DL >130 MG/DL *CHILDREN AND ADOLESCENTS REPRESENTS INDIVIDUALA AGED 2-19 YEARS EXCLUSIVE. Trig 91 mg/dL 35-200 [facility] ([facility] CHRONIC KIDNEY DISEASE STAGING PER NKF: MALE GFR INTERPRETATION: 20-49 YRS: >60 mL/min Normal 50-59 YRS: >56 mL/min Normal 60-69 YRS: >49 mL/min Normal 70-79 YRS: >42 mL/min Normal 80 and above >35 mL/min Normal FEMALE GRF INTERPRETATION: 20-39 YRS: >60 mL/min Normal 40-49 YRS: >58 mL/min Normal 50-59 YRS: >51 mL/min Normal 60-69 YRS: >45 mL/min Normal 70-79 YRS: >39 mL/min Normal 80 and above >32 mL/min NormalCLASSIFICATION CHOLESTEROL FOR ADULTS CHILDREN/ADOLESCENTS* DESIRABLE: <200 MG/DL <170 MG/DL BORDER-LINE HIGH RISK: 200-239 MG/DL 170-199 MG/DL HIGH RISK: >240 MG/DL >200 MG/DL CLASS. FOR PRIMARY LDL CHOL PREVENTION: LDL CHOL-CHILD/ADOLESCENTS* DESIRABLE: <130 MG/DL <110 MG/DL BORDERLINE-HIGH RISK: 130- 159 MG/DL 110-129 MG/DL HIGH RISK: >160 MG/DL >130 MG/DL *CHILDREN AND ADOLESCENTS REPRESENTS INDIVIDUALA AGED 2-19 YEARS EXCLUSIVE. LDL_C 98 Calc 75-129 MEDENT ([facility] CHRONIC KIDNEY DISEASE STAGING PER NKF: MALE GFR INTERPRETATION: 20-49 YRS: >60 mL/min Normal 50-59 YRS: >56 mL/min Normal 60-69 YRS: >49 mL/min Normal 70-79 YRS: >42 mL/min Normal 80 and above >35 mL/min Normal FEMALE GRF INTERPRETATION: 20-39 YRS: >60 mL/min Normal 40-49 YRS: >58 mL/min Normal 50-59 YRS: >51 mL/min Normal 60-69 YRS: >45 mL/min Normal 70-79 YRS: >39 mL/min Normal 80 and above >32 mL/min NormalCLASSIFICATION CHOLESTEROL FOR ADULTS CHILDREN/ADOLESCENTS* DESIRABLE: <200 MG/DL <170 MG/DL BORDER-LINE HIGH RISK: 200-239 MG/DL 170-199 MG/DL HIGH RISK: >240 MG/DL >200 MG/DL CLASS. FOR PRIMARY LDL CHOL PREVENTION: LDL CHOL-CHILD/ADOLESCENTS* DESIRABLE: <130 MG/DL <110 MG/DL BORDERLINE-HIGH RISK: 130- 159 MG/DL 110-129 MG/DL HIGH RISK: >160 MG/DL >130 MG/DL *CHILDREN AND ADOLESCENTS REPRESENTS INDIVIDUALA AGED 2-19 YEARS EXCLUSIVE. Cho/HDL Ratio 3.1 CALC [facility] CHRONIC KIDNEY DISEASE STAGING PER NKF: MALE GFR INTERPRETATION: 20-49 YRS: >60 mL/min Normal 50-59 YRS: >56 mL/min Normal 60-69 YRS: >49 mL/min Normal 70-79 YRS: >42 mL/min Normal 80 and above >35 mL/min Normal FEMALE GRF INTERPRETATION: 20-39 YRS: >60 mL/min Normal 40-49 YRS: >58 mL/min Normal 50-59 YRS: >51 mL/min Normal 60-69 YRS: >45 mL/min Normal 70-79 YRS: >39 mL/min Normal 80 and above >32 mL/min NormalCLASSIFICATION CHOLESTEROL FOR ADULTS CHILDREN/ADOLESCENTS* DESIRABLE: <200 MG/DL <170 MG/DL BORDER-LINE HIGH RISK: 200-239 MG/DL 170-199 MG/DL HIGH RISK: >240 MG/DL >200 MG/DL CLASS. FOR PRIMARY LDL CHOL PREVENTION: LDL CHOL-CHILD/ADOLESCENTS* DESIRABLE: <130 MG/DL <110 MG/DL BORDERLINE-HIGH RISK: 130- 159 MG/DL 110-129 MG/DL HIGH RISK: >160 MG/DL >130 MG/DL *CHILDREN AND ADOLESCENTS REPRESENTS INDIVIDUALA AGED 2-19 YEARS EXCLUSIVE. ID Date Data Source [id number] 10/01/2020 10:08:00 AM EST JESSE ([facility] Name Value Range Interpretation Code Description Data [place] rce(s) Supporting Document(s) Glu 120 mg/dL 70-110 Above high normal MEDENT ([facility] CHRONIC KIDNEY DISEASE STAGING PER NKF: MALE GFR INTERPRETATION: 20-49 YRS: >60 mL/min Normal 50-59 YRS: >56 mL/min Normal 60-69 YRS: >49 mL/min Normal 70-79 YRS: >42 mL/min Normal 80 and above >35 mL/min Normal FEMALE GRF INTERPRETATION: 20-39 YRS: >60 mL/min Normal 40-49 YRS: >58 mL/min Normal 50-59 YRS: >51 mL/min Normal 60-69 YRS: >45 mL/min Normal 70-79 YRS: >39 mL/min Normal 80 and above >32 mL/min NormalCLASSIFICATION CHOLESTEROL FOR ADULTS CHILDREN/ADOLESCENTS* DESIRABLE: <200 MG/DL <170 MG/DL BORDER-LINE HIGH RISK: 200-239 MG/DL 170-199 MG/DL HIGH RISK: >240 MG/DL >200 MG/DL CLASS. FOR PRIMARY LDL CHOL PREVENTION: LDL CHOL-CHILD/ADOLESCENTS* DESIRABLE: <130 MG/DL <110 MG/DL BORDERLINE-HIGH RISK: 130- 159 MG/DL 110-129 MG/DL HIGH RISK: >160 MG/DL >130 MG/DL *CHILDREN AND ADOLESCENTS REPRESENTS INDIVIDUALA AGED 2-19 YEARS EXCLUSIVE. BUN 20 mg/dL 8-23 [facility] ([facility] CHRONIC KIDNEY DISEASE STAGING PER NKF: MALE GFR INTERPRETATION: 20-49 YRS: >60 mL/min Normal 50-59 YRS: >56 mL/min Normal 60-69 YRS: >49 mL/min Normal 70-79 YRS: >42 mL/min Normal 80 and above >35 mL/min Normal FEMALE GRF INTERPRETATION: 20-39 YRS: >60 mL/min Normal 40-49 YRS: >58 mL/min Normal 50-59 YRS: >51 mL/min Normal 60-69 YRS: >45 mL/min Normal 70-79 YRS: >39 mL/min Normal 80 and above >32 mL/min NormalCLASSIFICATION CHOLESTEROL FOR ADULTS CHILDREN/ADOLESCENTS* DESIRABLE: <200 MG/DL <170 MG/DL BORDER-LINE HIGH RISK: 200-239 MG/DL 170-199 MG/DL HIGH RISK: >240 MG/DL >200 MG/DL CLASS. FOR PRIMARY LDL CHOL PREVENTION: LDL CHOL-CHILD/ADOLESCENTS* DESIRABLE: <130 MG/DL <110 MG/DL BORDERLINE-HIGH RISK: 130- 159 MG/DL 110-129 MG/DL HIGH RISK: >160 MG/DL >130 MG/DL *CHILDREN AND ADOLESCENTS REPRESENTS INDIVIDUALA AGED 2-19 YEARS EXCLUSIVE. Creat 1.1 mg/dL 0.7-1.2 MEDENT ([facility] CHRONIC KIDNEY DISEASE STAGING PER NKF: MALE GFR INTERPRETATION: 20-49 YRS: >60 mL/min Normal 50-59 YRS: >56 mL/min Normal 60-69 YRS: >49 mL/min Normal 70-79 YRS: >42 mL/min Normal 80 and above >35 mL/min Normal FEMALE GRF INTERPRETATION: 20-39 YRS: >60 mL/min Normal 40-49 YRS: >58 mL/min Normal 50-59 YRS: >51 mL/min Normal 60-69 YRS: >45 mL/min Normal 70-79 YRS: >39 mL/min Normal 80 and above >32 mL/min NormalCLASSIFICATION CHOLESTEROL FOR ADULTS CHILDREN/ADOLESCENTS* DESIRABLE: <200 MG/DL <170 MG/DL BORDER-LINE HIGH RISK: 200-239 MG/DL 170-199 MG/DL HIGH RISK: >240 MG/DL >200 MG/DL CLASS. FOR PRIMARY LDL CHOL PREVENTION: LDL CHOL-CHILD/ADOLESCENTS* DESIRABLE: <130 MG/DL <110 MG/DL BORDERLINE-HIGH RISK: 130- 159 MG/DL 110-129 MG/DL HIGH RISK: >160 MG/DL >130 MG/DL *CHILDREN AND ADOLESCENTS REPRESENTS INDIVIDUALA AGED 2-19 YEARS EXCLUSIVE. BUN/Creatinine Ratio 18.5 CALC MEDENT ([facility] CHRONIC KIDNEY DISEASE STAGING PER NKF: MALE GFR INTERPRETATION: 20-49 YRS: >60 mL/min Normal 50-59 YRS: >56 mL/min Normal 60-69 YRS: >49 mL/min Normal 70-79 YRS: >42 mL/min Normal 80 and above >35 mL/min Normal FEMALE GRF INTERPRETATION: 20-39 YRS: >60 mL/min Normal 40-49 YRS: >58 mL/min Normal 50-59 YRS: >51 mL/min Normal 60-69 YRS: >45 mL/min Normal 70-79 YRS: >39 mL/min Normal 80 and above >32 mL/min NormalCLASSIFICATION CHOLESTEROL FOR ADULTS CHILDREN/ADOLESCENTS* DESIRABLE: <200 MG/DL <170 MG/DL BORDER-LINE HIGH RISK: 200-239 MG/DL 170-199 MG/DL HIGH RISK: >240 MG/DL >200 MG/DL CLASS. FOR PRIMARY LDL CHOL PREVENTION: LDL CHOL-CHILD/ADOLESCENTS* DESIRABLE: <130 MG/DL <110 MG/DL BORDERLINE-HIGH RISK: 130- 159 MG/DL 110-129 MG/DL HIGH RISK: >160 MG/DL >130 MG/DL *CHILDREN AND ADOLESCENTS REPRESENTS INDIVIDUALA AGED 2-19 YEARS EXCLUSIVE. Na 137 mmol/L 136-145 [facility] CHRONIC KIDNEY DISEASE STAGING PER NKF: MALE GFR INTERPRETATION: 20-49 YRS: >60 mL/min Normal 50-59 YRS: >56 mL/min Normal 60-69 YRS: >49 mL/min Normal 70-79 YRS: >42 mL/min Normal 80 and above >35 mL/min Normal FEMALE GRF INTERPRETATION: 20-39 YRS: >60 mL/min Normal 40-49 YRS: >58 mL/min Normal 50-59 YRS: >51 mL/min Normal 60-69 YRS: >45 mL/min Normal 70-79 YRS: >39 mL/min Normal 80 and above >32 mL/min NormalCLASSIFICATION CHOLESTEROL FOR ADULTS CHILDREN/ADOLESCENTS* DESIRABLE: <200 MG/DL <170 MG/DL BORDER-LINE HIGH RISK: 200-239 MG/DL 170-199 MG/DL HIGH RISK: >240 MG/DL >200 MG/DL CLASS. FOR PRIMARY LDL CHOL PREVENTION: LDL CHOL-CHILD/ADOLESCENTS* DESIRABLE: <130 MG/DL <110 MG/DL BORDERLINE-HIGH RISK: 130- 159 MG/DL 110-129 MG/DL HIGH RISK: >160 MG/DL >130 MG/DL *CHILDREN AND ADOLESCENTS REPRESENTS INDIVIDUALA AGED 2-19 YEARS EXCLUSIVE. K 4.2 mmol/L 3.5-5.1 [facility] ([facility] CHRONIC KIDNEY DISEASE STAGING PER NKF: MALE GFR INTERPRETATION: 20-49 YRS: >60 mL/min Normal 50-59 YRS: >56 mL/min Normal 60-69 YRS: >49 mL/min Normal 70-79 YRS: >42 mL/min Normal 80 and above >35 mL/min Normal FEMALE GRF INTERPRETATION: 20-39 YRS: >60 mL/min Normal 40-49 YRS: >58 mL/min Normal 50-59 YRS: >51 mL/min Normal 60-69 YRS: >45 mL/min Normal 70-79 YRS: >39 mL/min Normal 80 and above >32 mL/min NormalCLASSIFICATION CHOLESTEROL FOR ADULTS CHILDREN/ADOLESCENTS* DESIRABLE: <200 MG/DL <170 MG/DL BORDER-LINE HIGH RISK: 200-239 MG/DL 170-199 MG/DL HIGH RISK: >240 MG/DL >200 MG/DL CLASS. FOR PRIMARY LDL CHOL PREVENTION: LDL CHOL-CHILD/ADOLESCENTS* DESIRABLE: <130 MG/DL <110 MG/DL BORDERLINE-HIGH RISK: 130- 159 MG/DL 110-129 MG/DL HIGH RISK: >160 MG/DL >130 MG/DL *CHILDREN AND ADOLESCENTS REPRESENTS INDIVIDUALA AGED 2-19 YEARS EXCLUSIVE. CL 100.1 mmol/L 98.0-107.0 [facility] ([facility] CHRONIC KIDNEY DISEASE STAGING PER NKF: MALE GFR INTERPRETATION: 20-49 YRS: >60 mL/min Normal 50-59 YRS: >56 mL/min Normal 60-69 YRS: >49 mL/min Normal 70-79 YRS: >42 mL/min Normal 80 and above >35 mL/min Normal FEMALE GRF INTERPRETATION: 20-39 YRS: >60 mL/min Normal 40-49 YRS: >58 mL/min Normal 50-59 YRS: >51 mL/min Normal 60-69 YRS: >45 mL/min Normal 70-79 YRS: >39 mL/min Normal 80 and above >32 mL/min NormalCLASSIFICATION CHOLESTEROL FOR ADULTS CHILDREN/ADOLESCENTS* DESIRABLE: <200 MG/DL <170 MG/DL BORDER-LINE HIGH RISK: 200-239 MG/DL 170-199 MG/DL HIGH RISK: >240 MG/DL >200 MG/DL CLASS. FOR PRIMARY LDL CHOL PREVENTION: LDL CHOL-CHILD/ADOLESCENTS* DESIRABLE: <130 MG/DL <110 MG/DL BORDERLINE-HIGH RISK: 130- 159 MG/DL 110-129 MG/DL HIGH RISK: >160 MG/DL >130 MG/DL *CHILDREN AND ADOLESCENTS REPRESENTS INDIVIDUALA AGED 2-19 YEARS EXCLUSIVE. Co2 25.3 mmol/L 22.0-29.0 [facility] ([facility] CHRONIC KIDNEY DISEASE STAGING PER NKF: MALE GFR INTERPRETATION: 20-49 YRS: >60 mL/min Normal 50-59 YRS: >56 mL/min Normal 60-69 YRS: >49 mL/min Normal 70-79 YRS: >42 mL/min Normal 80 and above >35 mL/min Normal FEMALE GRF INTERPRETATION: 20-39 YRS: >60 mL/min Normal 40-49 YRS: >58 mL/min Normal 50-59 YRS: >51 mL/min Normal 60-69 YRS: >45 mL/min Normal 70-79 YRS: >39 mL/min Normal 80 and above >32 mL/min NormalCLASSIFICATION CHOLESTEROL FOR ADULTS CHILDREN/ADOLESCENTS* DESIRABLE: <200 MG/DL <170 MG/DL BORDER-LINE HIGH RISK: 200-239 MG/DL 170-199 MG/DL HIGH RISK: >240 MG/DL >200 MG/DL CLASS. FOR PRIMARY LDL CHOL PREVENTION: LDL CHOL-CHILD/ADOLESCENTS* DESIRABLE: <130 MG/DL <110 MG/DL BORDERLINE-HIGH RISK: 130- 159 MG/DL 110-129 MG/DL HIGH RISK: >160 MG/DL >130 MG/DL *CHILDREN AND ADOLESCENTS REPRESENTS INDIVIDUALA AGED 2-19 YEARS EXCLUSIVE. CA 9.9 mg/dL 8.6-10.2 [facility] CHRONIC KIDNEY DISEASE STAGING PER NKF: MALE GFR INTERPRETATION: 20-49 YRS: >60 mL/min Normal 50-59 YRS: >56 mL/min Normal 60-69 YRS: >49 mL/min Normal 70-79 YRS: >42 mL/min Normal 80 and above >35 mL/min Normal FEMALE GRF INTERPRETATION: 20-39 YRS: >60 mL/min Normal 40-49 YRS: >58 mL/min Normal 50-59 YRS: >51 mL/min Normal 60-69 YRS: >45 mL/min Normal 70-79 YRS: >39 mL/min Normal 80 and above >32 mL/min NormalCLASSIFICATION CHOLESTEROL FOR ADULTS CHILDREN/ADOLESCENTS* DESIRABLE: <200 MG/DL <170 MG/DL BORDER-LINE HIGH RISK: 200-239 MG/DL 170-199 MG/DL HIGH RISK: >240 MG/DL >200 MG/DL CLASS. FOR PRIMARY LDL CHOL PREVENTION: LDL CHOL-CHILD/ADOLESCENTS* DESIRABLE: <130 MG/DL <110 MG/DL BORDERLINE-HIGH RISK: 130- 159 MG/DL 110-129 MG/DL HIGH RISK: >160 MG/DL >130 MG/DL *CHILDREN AND ADOLESCENTS REPRESENTS INDIVIDUALA AGED 2-19 YEARS EXCLUSIVE. Alb 4.6 g/dL 3.5-5.2 [facility] ([facility] CHRONIC KIDNEY DISEASE STAGING PER NKF: MALE GFR INTERPRETATION: 20-49 YRS: >60 mL/min Normal 50-59 YRS: >56 mL/min Normal 60-69 YRS: >49 mL/min Normal 70-79 YRS: >42 mL/min Normal 80 and above >35 mL/min Normal FEMALE GRF INTERPRETATION: 20-39 YRS: >60 mL/min Normal 40-49 YRS: >58 mL/min Normal 50-59 YRS: >51 mL/min Normal 60-69 YRS: >45 mL/min Normal 70-79 YRS: >39 mL/min Normal 80 and above >32 mL/min NormalCLASSIFICATION CHOLESTEROL FOR ADULTS CHILDREN/ADOLESCENTS* DESIRABLE: <200 MG/DL <170 MG/DL BORDER-LINE HIGH RISK: 200-239 MG/DL 170-199 MG/DL HIGH RISK: >240 MG/DL >200 MG/DL CLASS. FOR PRIMARY LDL CHOL PREVENTION: LDL CHOL-CHILD/ADOLESCENTS* DESIRABLE: <130 MG/DL <110 MG/DL BORDERLINE-HIGH RISK: 130- 159 MG/DL 110-129 MG/DL HIGH RISK: >160 MG/DL >130 MG/DL *CHILDREN AND ADOLESCENTS REPRESENTS INDIVIDUALA AGED 2-19 YEARS EXCLUSIVE. TP 6.8 g/dL 6.6-8.7 [facility] ([facility] CHRONIC KIDNEY DISEASE STAGING PER NKF: MALE GFR INTERPRETATION: 20-49 YRS: >60 mL/min Normal 50-59 YRS: >56 mL/min Normal 60-69 YRS: >49 mL/min Normal 70-79 YRS: >42 mL/min Normal 80 and above >35 mL/min Normal FEMALE GRF INTERPRETATION: 20-39 YRS: >60 mL/min Normal 40-49 YRS: >58 mL/min Normal 50-59 YRS: >51 mL/min Normal 60-69 YRS: >45 mL/min Normal 70-79 YRS: >39 mL/min Normal 80 and above >32 mL/min NormalCLASSIFICATION CHOLESTEROL FOR ADULTS CHILDREN/ADOLESCENTS* DESIRABLE: <200 MG/DL <170 MG/DL BORDER-LINE HIGH RISK: 200-239 MG/DL 170-199 MG/DL HIGH RISK: >240 MG/DL >200 MG/DL CLASS. FOR PRIMARY LDL CHOL PREVENTION: LDL CHOL-CHILD/ADOLESCENTS* DESIRABLE: <130 MG/DL <110 MG/DL BORDERLINE-HIGH RISK: 130- 159 MG/DL 110-129 MG/DL HIGH RISK: >160 MG/DL >130 MG/DL *CHILDREN AND ADOLESCENTS REPRESENTS INDIVIDUALA AGED 2-19 YEARS EXCLUSIVE. Globulin 2.2 CALC [facility] ([facility] CHRONIC KIDNEY DISEASE STAGING PER NKF: MALE GFR INTERPRETATION: 20-49 YRS: >60 mL/min Normal 50-59 YRS: >56 mL/min Normal 60-69 YRS: >49 mL/min Normal 70-79 YRS: >42 mL/min Normal 80 and above >35 mL/min Normal FEMALE GRF INTERPRETATION: 20-39 YRS: >60 mL/min Normal 40-49 YRS: >58 mL/min Normal 50-59 YRS: >51 mL/min Normal 60-69 YRS: >45 mL/min Normal 70-79 YRS: >39 mL/min Normal 80 and above >32 mL/min NormalCLASSIFICATION CHOLESTEROL FOR ADULTS CHILDREN/ADOLESCENTS* DESIRABLE: <200 MG/DL <170 MG/DL BORDER-LINE HIGH RISK: 200-239 MG/DL 170-199 MG/DL HIGH RISK: >240 MG/DL >200 MG/DL CLASS. FOR PRIMARY LDL CHOL PREVENTION: LDL CHOL-CHILD/ADOLESCENTS* DESIRABLE: <130 MG/DL <110 MG/DL BORDERLINE-HIGH RISK: 130- 159 MG/DL 110-129 MG/DL HIGH RISK: >160 MG/DL >130 MG/DL *CHILDREN AND ADOLESCENTS REPRESENTS INDIVIDUALA AGED 2-19 YEARS EXCLUSIVE. A/G Ratio 2.1 CALC [facility] ([facility] CHRONIC KIDNEY DISEASE STAGING PER NKF: MALE GFR INTERPRETATION: 20-49 YRS: >60 mL/min Normal 50-59 YRS: >56 mL/min Normal 60-69 YRS: >49 mL/min Normal 70-79 YRS: >42 mL/min Normal 80 and above >35 mL/min Normal FEMALE GRF INTERPRETATION: 20-39 YRS: >60 mL/min Normal 40-49 YRS: >58 mL/min Normal 50-59 YRS: >51 mL/min Normal 60-69 YRS: >45 mL/min Normal 70-79 YRS: >39 mL/min Normal 80 and above >32 mL/min NormalCLASSIFICATION CHOLESTEROL FOR ADULTS CHILDREN/ADOLESCENTS* DESIRABLE: <200 MG/DL <170 MG/DL BORDER-LINE HIGH RISK: 200-239 MG/DL 170-199 MG/DL HIGH RISK: >240 MG/DL >200 MG/DL CLASS. FOR PRIMARY LDL CHOL PREVENTION: LDL CHOL-CHILD/ADOLESCENTS* DESIRABLE: <130 MG/DL <110 MG/DL BORDERLINE-HIGH RISK: 130- 159 MG/DL 110-129 MG/DL HIGH RISK: >160 MG/DL >130 MG/DL *CHILDREN AND ADOLESCENTS REPRESENTS INDIVIDUALA AGED 2-19 YEARS EXCLUSIVE. Alp 79.7 U/L 40-129 [facility] ([facility] CHRONIC KIDNEY DISEASE STAGING PER NKF: MALE GFR INTERPRETATION: 20-49 YRS: >60 mL/min Normal 50-59 YRS: >56 mL/min Normal 60-69 YRS: >49 mL/min Normal 70-79 YRS: >42 mL/min Normal 80 and above >35 mL/min Normal FEMALE GRF INTERPRETATION: 20-39 YRS: >60 mL/min Normal 40-49 YRS: >58 mL/min Normal 50-59 YRS: >51 mL/min Normal 60-69 YRS: >45 mL/min Normal 70-79 YRS: >39 mL/min Normal 80 and above >32 mL/min NormalCLASSIFICATION CHOLESTEROL FOR ADULTS CHILDREN/ADOLESCENTS* DESIRABLE: <200 MG/DL <170 MG/DL BORDER-LINE HIGH RISK: 200-239 MG/DL 170-199 MG/DL HIGH RISK: >240 MG/DL >200 MG/DL CLASS. FOR PRIMARY LDL CHOL PREVENTION: LDL CHOL-CHILD/ADOLESCENTS* DESIRABLE: <130 MG/DL <110 MG/DL BORDERLINE-HIGH RISK: 130- 159 MG/DL 110-129 MG/DL HIGH RISK: >160 MG/DL >130 MG/DL *CHILDREN AND ADOLESCENTS REPRESENTS INDIVIDUALA AGED 2-19 YEARS EXCLUSIVE. Alt (SGPT) 24 U/L 0-41 [facility] ([facility] CHRONIC KIDNEY DISEASE STAGING PER NKF: MALE GFR INTERPRETATION: 20-49 YRS: >60 mL/min Normal 50-59 YRS: >56 mL/min Normal 60-69 YRS: >49 mL/min Normal 70-79 YRS: >42 mL/min Normal 80 and above >35 mL/min Normal FEMALE GRF INTERPRETATION: 20-39 YRS: >60 mL/min Normal 40-49 YRS: >58 mL/min Normal 50-59 YRS: >51 mL/min Normal 60-69 YRS: >45 mL/min Normal 70-79 YRS: >39 mL/min Normal 80 and above >32 mL/min NormalCLASSIFICATION CHOLESTEROL FOR ADULTS CHILDREN/ADOLESCENTS* DESIRABLE: <200 MG/DL <170 MG/DL BORDER-LINE HIGH RISK: 200-239 MG/DL 170-199 MG/DL HIGH RISK: >240 MG/DL >200 MG/DL CLASS. FOR PRIMARY LDL CHOL PREVENTION: LDL CHOL-CHILD/ADOLESCENTS* DESIRABLE: <130 MG/DL <110 MG/DL BORDERLINE-HIGH RISK: 130- 159 MG/DL 110-129 MG/DL HIGH RISK: >160 MG/DL >130 MG/DL *CHILDREN AND ADOLESCENTS REPRESENTS INDIVIDUALA AGED 2-19 YEARS EXCLUSIVE. Ast (Sgot) 24 U/L 0-40 MED[facility] ([facility] CHRONIC KIDNEY DISEASE STAGING PER NKF: MALE GFR INTERPRETATION: 20-49 YRS: >60 mL/min Normal 50-59 YRS: >56 mL/min Normal 60-69 YRS: >49 mL/min Normal 70-79 YRS: >42 mL/min Normal 80 and above >35 mL/min Normal FEMALE GRF INTERPRETATION: 20-39 YRS: >60 mL/min Normal 40-49 YRS: >58 mL/min Normal 50-59 YRS: >51 mL/min Normal 60-69 YRS: >45 mL/min Normal 70-79 YRS: >39 mL/min Normal 80 and above >32 mL/min NormalCLASSIFICATION CHOLESTEROL FOR ADULTS CHILDREN/ADOLESCENTS* DESIRABLE: <200 MG/DL <170 MG/DL BORDER-LINE HIGH RISK: 200-239 MG/DL 170-199 MG/DL HIGH RISK: >240 MG/DL >200 MG/DL CLASS. FOR PRIMARY LDL CHOL PREVENTION: LDL CHOL-CHILD/ADOLESCENTS* DESIRABLE: <130 MG/DL <110 MG/DL BORDERLINE-HIGH RISK: 130- 159 MG/DL 110-129 MG/DL HIGH RISK: >160 MG/DL >130 MG/DL *CHILDREN AND ADOLESCENTS REPRESENTS INDIVIDUALA AGED 2-19 YEARS EXCLUSIVE. Tbili 0.54 mg/dL 0.0-1.2 MED[facility] ([facility] CHRONIC KIDNEY DISEASE STAGING PER NKF: MALE GFR INTERPRETATION: 20-49 YRS: >60 mL/min Normal 50-59 YRS: >56 mL/min Normal 60-69 YRS: >49 mL/min Normal 70-79 YRS: >42 mL/min Normal 80 and above >35 mL/min Normal FEMALE GRF INTERPRETATION: 20-39 YRS: >60 mL/min Normal 40-49 YRS: >58 mL/min Normal 50-59 YRS: >51 mL/min Normal 60-69 YRS: >45 mL/min Normal 70-79 YRS: >39 mL/min Normal 80 and above >32 mL/min NormalCLASSIFICATION CHOLESTEROL FOR ADULTS CHILDREN/ADOLESCENTS* DESIRABLE: <200 MG/DL <170 MG/DL BORDER-LINE HIGH RISK: 200-239 MG/DL 170-199 MG/DL HIGH RISK: >240 MG/DL >200 MG/DL CLASS. FOR PRIMARY LDL CHOL PREVENTION: LDL CHOL-CHILD/ADOLESCENTS* DESIRABLE: <130 MG/DL <110 MG/DL BORDERLINE-HIGH RISK: 130- 159 MG/DL 110-129 MG/DL HIGH RISK: >160 MG/DL >130 MG/DL *CHILDREN AND ADOLESCENTS REPRESENTS INDIVIDUALA AGED 2-19 YEARS EXCLUSIVE. Osmolality-Calculated 277.5 CALC MED ENT ([facility] CHRONIC KIDNEY DISEASE STAGING PER NKF: MALE GFR INTERPRETATION: 20-49 YRS: >60 mL/min Normal 50-59 YRS: >56 mL/min Normal 60-69 YRS: >49 mL/min Normal 70-79 YRS: >42 mL/min Normal 80 and above >35 mL/min Normal FEMALE GRF INTERPRETATION: 20-39 YRS: >60 mL/min Normal 40-49 YRS: >58 mL/min Normal 50-59 YRS: >51 mL/min Normal 60-69 YRS: >45 mL/min Normal 70-79 YRS: >39 mL/min Normal 80 and above >32 mL/min NormalCLASSIFICATION CHOLESTEROL FOR ADULTS CHILDREN/ADOLESCENTS* DESIRABLE: <200 MG/DL <170 MG/DL BORDER-LINE HIGH RISK: 200-239 MG/DL 170-199 MG/DL HIGH RISK: >240 MG/DL >200 MG/DL CLASS. FOR PRIMARY LDL CHOL PREVENTION: LDL CHOL-CHILD/ADOLESCENTS* DESIRABLE: <130 MG/DL <110 MG/DL BORDERLINE-HIGH RISK: 130- 159 MG/DL 110-129 MG/DL HIGH RISK: >160 MG/DL >130 MG/DL *CHILDREN AND ADOLESCENTS REPRESENTS INDIVIDUALA AGED 2-19 YEARS EXCLUSIVE. Anion Gap 16 mmol/L [facility] ([facility] CHRONIC KIDNEY DISEASE STAGING PER NKF: MALE GFR INTERPRETATION: 20-49 YRS: >60 mL/min Normal 50-59 YRS: >56 mL/min Normal 60-69 YRS: >49 mL/min Normal 70-79 YRS: >42 mL/min Normal 80 and above >35 mL/min Normal FEMALE GRF INTERPRETATION: 20-39 YRS: >60 mL/min Normal 40-49 YRS: >58 mL/min Normal 50-59 YRS: >51 mL/min Normal 60-69 YRS: >45 mL/min Normal 70-79 YRS: >39 mL/min Normal 80 and above >32 mL/min NormalCLASSIFICATION CHOLESTEROL FOR ADULTS CHILDREN/ADOLESCENTS* DESIRABLE: <200 MG/DL <170 MG/DL BORDER-LINE HIGH RISK: 200-239 MG/DL 170-199 MG/DL HIGH RISK: >240 MG/DL >200 MG/DL CLASS. FOR PRIMARY LDL CHOL PREVENTION: LDL CHOL-CHILD/ADOLESCENTS* DESIRABLE: <130 MG/DL <110 MG/DL BORDERLINE-HIGH RISK: 130- 159 MG/DL 110-129 MG/DL HIGH RISK: >160 MG/DL >130 MG/DL *CHILDREN AND ADOLESCENTS REPRESENTS INDIVIDUALA AGED 2-19 YEARS EXCLUSIVE. eGFR 79 # [facility] ( [facility] CHRONIC KIDNEY DISEASE STAGING PER NKF: MALE GFR INTERPRETATION: 20-49 YRS: >60 mL/min Normal 50-59 YRS: >56 mL/min Normal 60-69 YRS: >49 mL/min Normal 70-79 YRS: >42 mL/min Normal 80 and above >35 mL/min Normal FEMALE GRF INTERPRETATION: 20-39 YRS: >60 mL/min Normal 40-49 YRS: >58 mL/min Normal 50-59 YRS: >51 mL/min Normal 60-69 YRS: >45 mL/min Normal 70-79 YRS: >39 mL/min Normal 80 and above >32 mL/min NormalCLASSIFICATION CHOLESTEROL FOR ADULTS CHILDREN/ADOLESCENTS* DESIRABLE: <200 MG/DL <170 MG/DL BORDER-LINE HIGH RISK: 200-239 MG/DL 170-199 MG/DL HIGH RISK: >240 MG/DL >200 MG/DL CLASS. FOR PRIMARY LDL CHOL PREVENTION: LDL CHOL-CHILD/ADOLESCENTS* DESIRABLE: <130 MG/DL <110 MG/DL BORDERLINE-HIGH RISK: 130- 159 MG/DL 110-129 MG/DL HIGH RISK: >160 MG/DL >130 MG/DL *CHILDREN AND ADOLESCENTS REPRESENTS INDIVIDUALA AGED 2-19 YEARS EXCLUSIVE. eGFR Non-Afr. Nigerian 68 # [facility] ([facility] CHRONIC KIDNEY DISEASE STAGING PER NKF: MALE GFR INTERPRETATION: 20-49 YRS: >60 mL/min Normal 50-59 YRS: >56 mL/min Normal 60-69 YRS: >49 mL/min Normal 70-79 YRS: >42 mL/min Normal 80 and above >35 mL/min Normal FEMALE GRF INTERPRETATION: 20-39 YRS: >60 mL/min Normal 40-49 YRS: >58 mL/min Normal 50-59 YRS: >51 mL/min Normal 60-69 YRS: >45 mL/min Normal 70-79 YRS: >39 mL/min Normal 80 and above >32 mL/min NormalCLASSIFICATION CHOLESTEROL FOR ADULTS CHILDREN/ADOLESCENTS* DESIRABLE: <200 MG/DL <170 MG/DL BORDER-LINE HIGH RISK: 200-239 MG/DL 170-199 MG/DL HIGH RISK: >240 MG/DL >200 MG/DL CLASS. FOR PRIMARY LDL CHOL PREVENTION: LDL CHOL-CHILD/ADOLESCENTS* DESIRABLE: <130 MG/DL <110 MG/DL BORDERLINE-HIGH RISK: 130- 159 MG/DL 110-129 MG/DL HIGH RISK: >160 MG/DL >130 MG/DL *CHILDREN AND ADOLESCENTS REPRESENTS INDIVIDUALA AGED 2-19 YEARS EXCLUSIVE. Procedure Social History Code Duration Value Status Description Data Source(s ) Smoking 03/11/2021 12:00:00 AM EDT Patient is a former smoker completed Patient is a former smoker JES[facility] ([facility]) Vital Signs ID Date Data Source UNK Name Value Range Interpretation Code Description Data Source(s) Body temperature 98.5 [degF] 98.5 [degF] [facility] ([facility] Body height 72 [in_i] 72 [in_i] [facility] ([facility] 6'0" Body mass index (BMI) [Ratio] 31.6 kg/m2 31.6 k g/m2 [facility] ([facility] Heart rate 70 /min 70 /min MED[facility] ([facility] Body weight 233.00 [lb_av] 233.00 [lb_av] MEDEN T ([facility] Oxygen saturation in Arterial blood by Pulse oximetry 94 % 94 % MEDIFTIKHAR ([facility] Systolic blood pressure 114 mm[Hg] 114 mm[Hg] M EDENT ([facility] Diastolic blood pressure 74 mm[Hg] 74 mm[Hg] [facility] ([facility] Respiratory rate 18 /min 18 /min MED[facility] ( [facility] [place] body weight 178 [lb_av] 178 [lb_av] MEDEN T ([facility] Body temperature 97.1 [degF] 97.1 [degF] MEDENT ([facility], ) Body temperature 96.8 [degF] 96.8 [degF] MEDENT ([facility], ) Body temperature 96.3 [degF] 96.3 [degF] [facility] ([facility]) Systolic blood pressure 132 mm[Hg] 132 mm[Hg] M EDENT ([facility]) Diastolic blood pressure 82 mm[Hg] 82 mm[Hg] MED[facility] ([facility]) Body weight 227.00 [lb_av] 227.00 [lb_av] MEDEN T ([facility]) Body height 72 [in_i] 72 [in_i] MEDENT ([facility]) 6'0" Body mass index (BMI) [Ratio] 30.8 kg/m2 30.8 k g/m2 MED[facility] ([facility]) Systolic blood pressure 122 mm[Hg] 122 mm[Hg] M EDENT ([facility] Body weight 227.00 [lb_av] 227.00 [lb_av] MEDEN T ([facility] Diastolic blood pressure 78 mm[Hg] 78 mm[Hg] MED[facility] ([facility] Heart rate 72 /min 72 /min MED[facility] ([facility] Respiratory rate 14 /min 14 /min MED[facility] ( [facility] Systolic blood pressure 118 mm[Hg] 118 mm[Hg] M EDENT ([facility]) Diastolic blood pressure 80 mm[Hg] 80 mm[Hg] [facility] Heart rate 85 /min 85 /min MED[facility] ([facility]) Respiratory rate 17 /min 17 /min [facility] ( [facility]) Oxygen saturation in Arterial blood by Pulse oximetry 99 % 99 % [facility]) Body temperature 98.0 [degF] 98.0 [degF] [facility] ([facility]) Body weight 218.00 [lb_av] 218.00 [lb_av] MEDEN T ([facility]) Body height 71 [in_i] 71 [in_i] MEDENT ([facility]) 5'11" Body mass index (BMI) [Ratio] 30.4 kg/m2 30.4 k g/m2 [facility] ([facility], [facility]) Body height 71 [in_i] 71 [in_i] [facility] ([facility]) 5'11" Body mass index (BMI) [Ratio] 30.4 kg/m2 30.4 k g/m2 MED[facility] ([facility], [facility]) Body weight 218.00 [lb_av] 218.00 [lb_av] MEDEN T ([facility], [facility]) Systolic blood pressure 119 mm[Hg] 119 mm[Hg] M EDENT ([facility]) Diastolic blood pressure 76 mm[Hg] 76 mm[Hg] [facility] Heart rate 71 /min 71 /min MED[facility] ([facility]) Respiratory rate 16 /min 16 /min [facility]) Oxygen saturation in Arterial blood by Pulse oximetry 98 % 98 % [facility]) Body temperature 98.0 [degF] 98.0 [degF] [facility]) Systolic blood pressure 124 mm[Hg] 124 mm[Hg] M EDENT ([facility] Heart rate 72 /min 72 /min [facility] ([facility] Respiratory rate 14 /min 14 /min [facility] ( [facility] Body weight 239.00 [lb_av] 239.00 [lb_av] MEDEN T ([facility] Diastolic blood pressure 80 mm[Hg] 80 mm[Hg] [facility] ([facility]
[2021-06-05] MEDS ORDERED: BUPIVACAINE LIPOSOME/PF 1.3% 20ML VIAL (13.3MG/ML)(EXPAREL)(C9290 PER1MG) As Ordered ONE (07:14)
[2021-06-05] MEDS ORDERED: BUPIVACAINE HCL 0.5% 30 ML VIAL As Ordered ONE (07:14)
[2021-06-05] MEDS ORDERED: ROCURONIUM BROMIDE 50 MG/5 ML VIAL As Ordered ONE (07:23)
[2021-06-05] MEDS ORDERED: dexameTHASONE 4 MG/ML 1ML VIAL (J1100 PER 1MG) As Ordered ONE (07:23)
[2021-06-05] MEDS ORDERED: LIDOCAINE 2% 100MG/5ML SDV (FOR ANES.) As Ordered ONE (07:23)
[2021-06-05] MEDS ORDERED: ONDANSETRON 4MG/2ML VIAL As Ordered ONE (07:23)
[2021-06-05] MEDS ORDERED: fentaNYL 250 MCG/5 ML INJECTION (J3010) As Ordered ONE (07:23)
[2021-06-05] MEDS ORDERED: MIDAZOLAM INJ 2MG/2ML VIAL (J2250 PER 1MG) As Ordered ONE (07:23)
[2021-06-05] MEDS ORDERED: propofoL 200 MG/20 ML VIAL As Ordered ONE (07:23)
[2021-06-05] MEDS ORDERED: THROMBIN SOLN 20,000 UNITS KIT As Ordered ONE (07:30)
[2021-06-05] MEDS ORDERED: TRANEXAMIC ACID 100 MG/ML 10ML VIAL As Ordered ONE ×2 (07:46→07:59)
[2021-06-05] MEDS ORDERED: BUPIVACAINE/EPIN 0.5% 30 ML VIAL As Ordered ONE (07:55)
[2021-06-05] MEDS ORDERED: ACETAMINOPHEN 1000MG 100ML IV BTL (OFIRMEV) (J0131 PER 10MG) As Ordered ONE (09:40)
[2021-06-05] MEDS ORDERED: HYDROmorphone HCL 2 MG/ML 1ML VIAL As Ordered ONE (09:40)
[2021-06-05] MEDS ORDERED: SUGAMMADEX SODIUM 500 MG/5 ML VIAL (BRIDION) As Ordered ONE (09:40)
[2021-06-05] MEDS ORDERED: LABETALOL 100MG/20ML VIAL As Ordered ONE (10:43)
--- NOTE | 2021-06-05 11:08 | ROOPDOC ---
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 PROCEDURE PERFORMED: [Left L3-4 laminotomy, decompression and discectomy]. SURGEON: [Manny bass], CAFETERIA AIDE: [statistical technician], ANESTHESIA: [General anesthesia]. ESTIMATED BLOOD LOSS: Approximately [50] mL. COMPLICATIONS: [None]. REMARKS: . FINDINGS: [Left L3-4 paracentral disc herniation with adhesions to dura] SPECIMENS REMOVED: [L3-4 disc herniation] PROCEDURE NOTE: . DESCRIPTION OF PROCEDURE: [Patient was met in the holding area. H&P was reviewed. Continued left-sided leg symptoms. Left side was marked. Patient given 2 g Ancef preoperatively and 1 g of TXA. He was then taken to the operative room here at [facility]. Given a general anesthetic in usual manner. He then transferred onto the Angel table in the prone position. All bony prominences well-padded care. Care was taken to protect his eyes. Arms were placed in a 90 90 position with no stress on the brachial plexus. We then using sterile technique prepped the back and used to spinal needles to locate the L3-4 level using fluoroscopic guidance. Once levels marked we then reprepped and draped the patient's back. Infiltrated the subcutaneous tissue with 0.25% Marcaine with epinephrine at the proposed incision. Made approximately 4 cm incision midline. Deepened incision down to the lumbar fascia. Elevated lumbar fascia off the lateral aspect of the spinous process. Elevated the musculature off the spinous process and lamina. We then use a Yasmine I repeated fluoroscopic x-rays to ensure we were at the L3-4 interlaminar well. Once we had confirmed the correct level. Self-retaining retractors. We then high-speed bur to thin the lamina of the inferior aspect of L3. Completed laminotomy with Kerrison rongeurs. Used Kerrisons and blunt dissection with Sherman dson to elevate the ligamentum flavum off the dura. We then retracted the dura medially identified the L3-4 disc space. We placed a nerve hook and repeated the x-rays to ensure we had the correct this level. We then used the bipolar cautery to obtain hemostasis from the epidural veins. Protecting and retracting dura medially made a horizontal annulotomy and performed a discectomy. We then used a Lyons on the anterior surface of the dura and probed and pushed the disc more laterally. We eventually got a large disc fragments which were removed with pituitaries. Repeatedly probed with a Lyons to ensure we had completed discectomy. After the discectomy we irrigated with copious muscle saline. Placed 1 g of TXA in the wound after 5 minutes suctioned out the TXA and used some thrombin to help with hemostasis. Once we achieve adequate hemostasis we closed the lumbar fascia with 2-0 Vicryl interrupted manner. And closed skin with 2-0 Vicryl interrupted. 3-0 running Monocryl and Steri-Strips. We infiltrated the subcutaneous tissues and paraspinal musculature with 6 cc Exparel mixed with Marcaine. Sterile Mepilex dressing. Patient was then transferred from the Angel table to the stretcher. He was awakened from anesthesia and extubated. Postop he was seen to be moving his legs. Patient was taken awake to recovery. Plan: 1. Plan patient weightbearing as tolerated, activity no deep bending. 2. Pain medication postop Percocets, Celebrex and omeprazole as a PPI 3. Follow-up outpatient office 1 week. 4. If he develops any symptoms of cauda equina, epidural hematoma to go to the emergency immediately.]. MANNY CRAWLEY MD Jun 05, 2021 11:08
[2021-06-05] MEDS ORDERED: KETOROLAC 60MG 2ML VIAL As Ordered ONE (11:09)
[2021-06-05] MEDS ORDERED: OXYC1TAB23 PO (11:12)
[2021-06-05] MEDS ORDERED: CELE1CAP4 PO (11:18)
[2021-06-05] MEDS ORDERED: OMEP40CA4 PO (11:20)
[2021-06-05] MEDS ORDERED: LR 1,000 ML IV SCH (11:35)
[2021-06-05] MEDS ORDERED: NS 1,000 ML IV SCH (11:35)
[2021-06-05] MEDS ORDERED: fentaNYL 100 MCG/2 ML INJECTION (J3010) IV PRN (11:35)
[2021-06-05] MEDS ORDERED: ONDANSETRON 4MG/2ML VIAL IV PRN (11:35)
[2021-06-05] MEDS ORDERED: oxyCODONE 5MG TAB PO PRN (11:35)
[2021-06-05 11:50] VITALS: BP 108/72
[2021-06-05] MEDS ORDERED: CelecoXIB (CeleBREX) 100 MG CAP PO SCH (21:00)
[2021-06-06] MEDS ORDERED: UNRESOLVED CLARIFICATION ENTRY XX SCH (00:01)
== END 2021-06-05 13:05 | disposition home or self-care (01) ==
LOC: M SDC 06:29
PROVIDERS: ATTEND Orthopaedic Surgery
DX: M51.26 Other intervertebral disc displacement, lumbar region (principal); M48.062 Spinal stenosis, lumbar region with neurogenic claudication; I49.3 Ventricular premature depolarization; E78.5 Hyperlipidemia, unspecified; I10 Essential (primary) hypertension; M19.90 Unspecified osteoarthritis, unspecified site; Z79.899 Other long term (current) drug therapy; Z72.0 Tobacco use; Z98.1 Arthrodesis status
CPT/HCPCS: 63030; 76000; 88304; C9290; J0131; J0690; J1100; J1170; J1885; J2250; J2405; J3010

== ENCOUNTER → 2022-01-22 | Outpatient (CLI) | payer MEDICARE, OTHER ==
[~2022-01-22] MED LIST changes: +CELE1CAP4 PO; -LR 1,000 ML IV ONE; +OMEP40CA4 PO; +OXYC1TAB23 PO; -ceFAZolin SOD 2 GM in IV 1 EA IV ONE
== END ==
LOC: M LABSMTC 09:48
PROVIDERS: ATTEND Anesthesiology
DX: Z11.52 Encounter for screening for COVID-19 (principal); Z20.822 Contact with and (suspected) exposure to COVID-19

== ENCOUNTER 2022-01-27 07:29 | Day surgery (SDC) | payer MEDICARE, OTHER ==
[~2022-01-27] VITALS: Ht 182.9 cm; Wt 103.9 kg
[~2022-01-27 07:29] MED LIST changes: +LIDOCAINE 2% 100MG/5ML SDV (FOR ANES.) As Ordered ONE; +NS 1,000 ML IV ONE; +propofoL 200 MG/20 ML VIAL As Ordered ONE
[2022-01-27 09:50] VITALS: BP 125/76
== END 2022-01-27 09:55 | disposition home or self-care (01) ==
LOC: M OPP 07:29
PROVIDERS: ATTEND Internal Medicine Gastroenterology
DX: Z12.11 Encounter for screening for malignant neoplasm of colon (principal); Z86.010 Personal history of colon polyps; D12.2 Benign neoplasm of ascending colon; K57.30 Diverticulosis of large intestine without perforation or abscess without bleeding; K64.0 First degree hemorrhoids; F17.210 Nicotine dependence, cigarettes, uncomplicated; Z79.2 Long term (current) use of antibiotics; Z79.899 Other long term (current) drug therapy

== ENCOUNTER → 2022-07-31 | Outpatient (CLI) | payer MEDICARE, OTHER ==
[~2022-07-31] MED LIST changes: -LIDOCAINE 2% 100MG/5ML SDV (FOR ANES.) As Ordered ONE; -NS 1,000 ML IV ONE; -propofoL 200 MG/20 ML VIAL As Ordered ONE
== END ==
LOC: M PLAIMG 10:43
PROVIDERS: ATTEND Orthopaedic Surgery
DX: S46.012A Strain of muscle(s) and tendon(s) of the rotator cuff of left shoulder, initial encounter (principal); M19.012 Primary osteoarthritis, left shoulder; M94.212 Chondromalacia, left shoulder; M25.412 Effusion, left shoulder

== ENCOUNTER → 2023-03-27 | Outpatient (CLI) | payer MEDICARE, OTHER | LOC: M SOG 08:30 | PROVIDERS: ATTEND Orthopaedic Surgery | DX: M51.26 Other intervertebral disc displacement, lumbar region (principal); M25.551 Pain in right hip; M47.817 Spondylosis without myelopathy or radiculopathy, lumbosacral region ==

== ENCOUNTER → 2023-04-07 | Outpatient (CLI) | payer MEDICARE, OTHER | LOC: M RAD 07:14 | PROVIDERS: ATTEND Orthopaedic Surgery | DX: M47.816 Spondylosis without myelopathy or radiculopathy, lumbar region (principal); M25.551 Pain in right hip ==

== ENCOUNTER → 2024-10-04 | Outpatient (REF) | payer MEDICARE, OTHER | LOC: M SFHCDERM 08:27 | PROVIDERS: ATTEND Nurse Practitioner Family | DX: C44.629 Squamous cell carcinoma of skin of left upper limb, including shoulder (principal) ==

== ENCOUNTER → 2024-10-19 | Outpatient (REF) | payer MEDICARE, OTHER | LOC: M LAB REF 15:56 | PROVIDERS: ATTEND Surgery | DX: C44.629 Squamous cell carcinoma of skin of left upper limb, including shoulder (principal) ==